=== PATIENT | female | born 1970 | race Caucasian/White ===

== ENCOUNTER 2020-07-30 16:10 | Outpatient (REF) | payer OTHER, MEDICAID, SELFPAY ==
--- NOTE | 2020-07-30 | US_ITS ---
EXAMINATION: US SOFT TISSUE OF THE NECK CLINICAL INFORMATION: Left parotid swelling. COMPARISON: None TECHNIQUE: Linear transducer grayscale and color Doppler examination of the left parotid gland. FINDINGS: The parotid gland has a relatively smooth contour. No definite ductal dilation. No shadowing calculus. There are 2 circumscribed hypoechoic oval abnormalities within the parotid. These likely represent lymph nodes but are nonspecific. US/US soft tiss head and/or neck IMPRESSION: No ductal dilation or calculus demonstrated. There may be some small nonspecific lymph nodes. The patient should be managed on a clinical basis.
== END 2020-07-30 16:11 | disposition home or self-care (01) ==
LOC: HO.US 16:10
PROVIDERS: PCP Internal Medicine; Visit Provider Internal Medicine
DX: K11.20 Sialoadenitis, unspecified (principal)
CPT/HCPCS: 76536

== ENCOUNTER 2022-02-24 15:36 | Outpatient (REF) | payer OTHER, MEDICAID, SELFPAY ==
--- NOTE | ~2022-02-24 | XR_ITS ---
EXAMINATION: XR CERVICAL SPINE CLINICAL INFORMATION: Cervicalgia COMPARISON: None TECHNIQUE: Cervical spine is imaged in 8 views. FINDINGS: The vertebral bodies are normal in height and there is no vertebral compression, spondylolisthesis, destructive process, or prevertebral soft tissue swelling. The odontoid appears intact. No focal disc narrowing. There is anterior vertebral spurring and lesser posterior vertebral body spurring C4-C5 through C6-C7. Oblique views show mild left foraminal spurring C5-C6 and on the right at C5-C6 and C6-C7. XR/XR cervical spine 4V IMPRESSION: -No vertebral compression, spondylolisthesis, destructive process.. -Vertebral spurring C4-C7 with variable foraminal spurring.
== END 2022-02-24 15:37 | disposition home or self-care (01) ==
LOC: HO.XRAY 15:36
PROVIDERS: Visit Provider Emergency Medicine
DX: M54.2 Cervicalgia (principal)
CPT/HCPCS: 72050

== ENCOUNTER 2022-06-09 10:21 | Outpatient (REF) | payer OTHER, MEDICAID, SELFPAY ==
--- NOTE | ~2022-06-09 | MM_ITS ---
EXAMINATION: MM SCREENING DIGITAL BREAST TOMOSYNTHESIS, BILATERAL CLINICAL INFORMATION: Screening. Asymptomatic. The lifetime risk of breast cancer based on the Tyrer-Cuzick Model is 8%. COMPARISON: Mammography: 10/22/2017, 06/19/2016, 04/08/2015; right breast ultrasound 10/22/2017. TECHNIQUE: Digital breast tomosynthesis is performed in both the craniocaudal and mediolateral oblique views along with computer-aided detection (CAD). Synthesized 2D images are generated from the tomosynthesis. FINDINGS: There are scattered areas of fibroglandular density (ACR BI-RADS breast composition Category b). There is a cyst anterior upper outer right breast slightly increased in size, 5 x 9 mm compared with prior measurements 4 x 6 mm. There is no significant mass or architectural abnormality or abnormal calcifications. The axilla are unremarkable. The skin contours are smooth. MM/MM tomosynthesis screening BI IMPRESSION: -No mammographic evidence of malignancy. ASSESSMENT: BI-RADS 2: Benign RECOMMENDATION: Routine annual mammography screening. This patient's information was entered into a reminder system with a target due date for their next mammogram.
== END 2022-06-09 10:22 | disposition home or self-care (01) ==
LOC: HO.MAMMO 10:21
PROVIDERS: PCP Internal Medicine; Visit Provider Advanced Practice Midwife
DX: Z12.31 Encounter for screening mammogram for malignant neoplasm of breast (principal)
CPT/HCPCS: 77063; 77067

== ENCOUNTER 2022-09-04 11:33 | Outpatient (REF) | payer OTHER, MEDICAID, SELFPAY ==
[2022-09-04 13:37] LABS: Syphilis Screen Nonreactive (Nonreactive)
[2022-09-04 14:11] LABS: CT PCR NOT DETECTED (Not Detect.); NG PCR NOT DETECTED (Not Detect.)
[2022-09-05 08:15] LABS: HBsAGNum1 0.32 S/CO (0.00-0.99); HIV AB/AG Nonreactive (Nonreactive); HIV Num 1 0.06 S/CO (0.00-0.99); Hepatitis B Surface Antigen Negative (Negative); ~HepC Num1 14.15 S/CO (0.00-0.79); ~Hepatitis C Antibody Reactive (Nonreactive)
[2022-09-05 08:56] LABS: BV Int Neg Control Negative (Negative); BV Int Pos Control Positive (Positive)
[2022-09-07 11:38] LABS: HPV mRNA E6/E7 rflx Not Detected (Not Detected)
== END 2022-09-04 11:34 | disposition home or self-care (01) ==
LOC: HO.LNP 11:33
PROVIDERS: Visit Provider Advanced Practice Midwife
DX: Z01.419 Encounter for gynecological examination (general) (routine) without abnormal findings (principal); Z11.4 Encounter for screening for human immunodeficiency virus [HIV]; Z11.3 Encounter for screening for infections with a predominantly sexual mode of transmission; B37.31 Acute candidiasis of vulva and vagina; E66.9 Obesity, unspecified; Z87.42 Personal history of other diseases of the female genital tract; Z97.5 Presence of (intrauterine) contraceptive device; Z98.51 Tubal ligation status; Z98.891 History of uterine scar from previous surgery
CPT/HCPCS: 86780; 86803; 87340; 87389; 87480; 87491; 87510; 87591; 87624; 87660; 88142

== ENCOUNTER 2023-03-21 11:52 | Emergency (ER) | payer OTHER, MEDICAID, SELFPAY ==
--- NOTE | 2023-03-21 12:04 | ED.ALLEREA ---
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 Admits symptoms started while she was driving. Reports took muscle relaxer today which is not new, as well as preparing salmon this morning which she has never had prior reaction to. 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 Reports scratchy/raspy throat. Denies SOB, CP, new exposures, fever MD complaint: allergic reaction Onset (ago): minute(s) Related Data Home Medications Medication Instructions Recorded Confirmed albuterol sulfate 2.5 mg/3 mL mg inhalation 06/05/22 09/04/22 (0.083 %) solution for nebulization albuterol sulfate 90 mcg/actuation 0 mcg inhalation 06/05/22 09/04/22 aerosol inhaler bupropion HCl 300 mg 24 hr tablet, 300 mg PO DAILY 06/05/22 09/04/22 extended release cyclobenzaprine 10 mg tablet 10 mg PO TID 06/05/22 09/04/22 diclofenac sodium 75 mg 75 mg PO BID 06/05/22 09/04/22 tablet,delayed release lamotrigine 100 mg tablet 100 mg PO DAILY 06/05/22 09/04/22 omeprazole 20 mg capsule,delayed 20 mg PO DAILY 06/05/22 09/04/22 release topiramate 50 mg tablet 50 mg PO BID 06/05/22 09/04/22 Previous Rx's Medication Instructions Recorded miconazole nitrate 2 % vaginal 1 appful vaginal BEDTIME 7 days 09/04/22 cream (Miconazole-7) #45 grams cetirizine 10 mg capsule (Zyrtec) 10 mg PO DAILY PRN allergy 03/21/23 symptoms #14 caps diphenhydramine HCl 25 mg capsule 25 mg PO TID PRN allergic reaction 03/21/23 (Benadryl) #14 caps epinephrine 0.3 mg/0.3 mL 0.3 mg (0.3 mL) IM Q4H PRN 03/21/23 injection, auto-injector (EpiPen) anaphylaxis #2 ea Allergies Allergy/AdvReac Type Severity Reaction Status Date / Time No Known Allergies [NKA] Allergy Verified 09/04/22 10:52 Review of Systems Review of Systems: Constitutional: No Fever, No Chills ENT/Mouth: No Ear Pain, No Nasal Congestion, No Sinus Pain, + Hoarseness, No sore throat, No Rhinorrhea, + Swallowing Difficulty Cardiovascular: No Chest Pain, No SOB Respiratory: No Cough, No Sputum, No Wheezing Gastrointestinal: No Nausea, No Vomiting, No Diarrhea, No Constipation, No Abdominal pain Musculoskeletal: No joint pain, No Myalgias, No Joint Swelling Skin: No Skin Lesions, + rash Neuro: No Weakness, No Numbness, No Paresthesias Yes all other systems are reviewed and are negative Constitutional: Constitutional: Reports as per [facility] Past Medical History Attestation statement: The following information was validated with the patient. Source: old records reviewed Medical History Asthma Surgical History Hx of section Hx of tubal ligation Family History Family History Father HTN (hypertension) Diabetes CAD (coronary artery disease) Brother Diabetes Social History Social History Household Members Other:: son Housing: House Alcohol intake: never Patient Tobacco Use Status: Current someday Tobacco user Tobacco use type: Cigarette Cigarettes Per Day: 3 Smoked in Last 30 Days: No Use of substances other than those prescribed or required for medical reasons: No Advance Directives: No Advance Directives Information Provided: No Current occupational status: employed 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 Sexual orientation: Straight/Heterosexual Gender identity: Female Physical Exam ED Vital Signs: Vital Signs - 24 hr 03/21/23 12:06 Temperature 97.1 F Pulse Rate 111 H Respiratory Rate 18 Blood Pressure 113/81 Pulse Oximetry 96 Oxygen Delivery Method Room Air BMI result Body Mass Index 33.3 Const General: cooperative, healthy appearing, no acute distress and awake Orientation/consciousness: patient oriented x3 Limitations: no limitations HENMT Head: Yes normal to inspection and Yes atraumatic Ears: hearing grossly normal bilaterally General nose exam: Normal external nose present Face and sinus: Yes normal facial exam Throat: Yes posterior oropharynx normal, Yes tonsils normal, Yes uvula midline, No peritonsillar mass, No uvula laterally displaced and No uvular edema Eyes General: appearance normal, both eyes and all related structures EOM: EOMs intact bilaterally Neck Neck: Yes normal visual inspection and Yes no meningeal signs Resp Effort & Inspection: normal respiratory effort, no grunting, not labored, no respiratory distress, no stridor, not tachypneic and no tripod positioning Auscultation: clear to auscultation bilaterally and no wheezes Cardio Rate: regular rate Heart sounds: S1 normal heart sound present and S2 normal heart sound present Skin Other: + diffuse erythematous rash to face, chest, and upper back. Mild bilateral hand and lip swelling noted. Talking in complete sentences, no respiratory distress, no drooling, handling secretions, no angioedema Wounds: no wounds Neuro General: patient oriented x3, tone normal and no meningeal signs Gait exam (Neuro): Normal gait present Extrem General: Yes normal to inspection Course Course Course Narrative: RME - 53 yo Slovak speaking female presents to the ER for evaluation of a possible allergic reaction that started 45 minutes ago. She states she developed a red, raised, itchy rash all over her body when she was driving. She reports her voice started to feel raspy. She took benadryl x2 which helped. No new foods, meds. HR 110s in triage. Airway patent and clear lungs but she reports her voice feels different and swallowing feels different. Plan: medicate and observe -1352--on re-evaluation patient reports mild symptomatic improvement. Reports mild nausea. Rash improving/resolved. No respiratory distress, talking in complete sentences. Results discussed with patient including worrisome signs and symptoms and strict return precautions, and when to return to the emergency department. They verbalized understanding and feel safe for discharge at this time. Medications Administered Discontinued Medications Generic Name Dose Route Start Last Admin Trade Name Freq PRN Reason Stop Dose Admin Famotidine 20 mg 03/21/23 12:12 03/21/23 12:49 Famotidine 20 Mg Tablet PO 03/21/23 12:13 20 mg ONCE ONE Administration Loratadine 10 mg 03/21/23 12:12 03/21/23 12:49 Loratadine 10 Mg Tablet PO 03/21/23 12:13 10 mg ONCE ONE Administration Methylprednisolone Sodium Succinate 60 mg 03/21/23 12:10 03/21/23 12:49 Methylprednisolone Sod Succ 125 Mg/2 Ml Vial IM 03/21/23 12:11 60 mg ONCE ONE Administration Ondansetron HCl 4 mg 03/21/23 13:17 03/21/23 13:29 Ondansetron Odt 4 Mg Tab.Rapdis TRANSLINGU 03/21/23 13:18 4 mg ONCE ONE Administration Medical Decision Making Medical Decision Making MDM Narrative: 53-year-old female with a past medical history tubal ligation, , presenting to the ED complaining of suspected 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 On exam tachycardic, NAD, nontoxic appearing, no respiratory distress/airway compromise, talking in complete sentences, diffuse erythematous rash noted as above with mild lip and bilateral hand swelling. Handling secretions, no stridor. Concern for allergic reaction. No evidence of anaphylaxis/angioedema. Plan: IM Solu-Medrol, p.o. Pepcid/Claritin, observe and re-evaluate Please refer to course for remaining clinical decision making, interpretation of labs/imaging results, and discussions with consultants and/or family members. Differential Diagnosis Differential Diagnoses: The differential diagnosis associated with the presentation includes As above Admission/Observation Consideration of admission/observation: Escalation of care including admission/observation considered Lab Data [facility] Lab Attestation statement: I reviewed the patient's lab results. Radiology Impression Discussion of test interpretation with radiology: I have reviewed the radiologist's reading. External Record Review External record reviewed: Inpatient record, Office record, Outpatient record, Prior outpatient labs, Prior outpatient radiology, Primary care record and Outside ED record Tests considered The following testing was considered but not selected: As above Critical Care Time Critical Care Time Critical Care Time: Yes Total Critical Care Time: 40 Attestation: I have personally provided critical care time exclusive of time spent on separately billable procedures. Time includes review of lab data, radiology results, discussion with consultants, and monitoring for potential decompensation. Intervention performed as documented. Discharge Plan Discharge Clinical Impression: Allergic reaction Patient Disposition: Home, Self-Care Instructions: General Allergic Reaction (ED), Allergy Testing (ED) Additional Instructions: You had an allergic reaction to an unknown substance today Please follow-up with an compressed yeast supervisor for further allergy testing If symptoms recur, you develop difficulty breathing, throat closing sensation, or chest discomfort return to the ED immediately Please take Benadryl as needed for allergy symptoms, you may also take Zyrtec or Claritin and Pepcid Will send you home with an EpiPen if you feel like youre unable to breathe, please administer and come to the ED immediately Tuviste erlinda reacci?n al?rgica a erlinda sustancia desconocida hoy. Marco Antonio un seguimiento con un alerg?logo para realizar m?s pruebas de alergia. Si los s?ntomas reaparecen, tiene dificultad para respirar, sensaci?n de que se le loretta la garganta o molestias en el pecho, regrese inmediatamente al servicio de urgencias. [place] Benadryl seg?n sea necesario para los s?ntomas de alergia, tambi?n puede sulema Zyrtec o Claritin y Pepcid Lo enviar? a casa con un EpiPen si siente que no puede respirar, administre y acuda al servicio de urgencias de inmediato. Prescriptions: New diphenhydramine HCl [Benadryl] 25 mg capsule 25 mg PO TID PRN (Reason: allergic reaction) Qty: 14 0RF Zyrtec 10 mg capsule 10 mg PO DAILY PRN (Reason: allergy symptoms) Qty: 14 0RF epinephrine [EpiPen] 0.3 mg/0.3 mL auto-injector 0.3 mg IM Q4H PRN (Reason: anaphylaxis) Qty: 2 0RF No Action topiramate 50 mg tablet 50 mg PO BID bupropion HCl 300 mg tablet extended release 24 hr 300 mg PO DAILY lamotrigine 100 mg tablet 100 mg PO DAILY diclofenac sodium 75 mg tablet,delayed release (DR/EC) 75 mg PO BID cyclobenzaprine 10 mg tablet 10 mg PO TID albuterol sulfate 90 mcg/actuation HFA aerosol inhaler 0 mcg inhalation albuterol sulfate 2.5 mg /3 mL (0.083 %) solution for nebulization inhalation omeprazole 20 mg capsule,delayed release(DR/EC) 20 mg PO DAILY miconazole nitrate [Miconazole-7] 2 % cream 1 appful vaginal BEDTIME 7 Days Qty: 45 3RF Referrals: Roberto Quinones MD [Physician] - Ana Laura Bo MD [Primary Care Provider] - Mark Turcios DO [Physician] - Constanza Rocha MD [Physician] - Print Language: Slovak
[2023-03-21 12:06] VITALS: BP 113/81; PULSE 111; RESP 18; TEMP 36.2; O2SAT 96; BMI 33.3
[2023-03-21] MEDS: Famotidine 20 MG TABLET PO (12:49)
[2023-03-21] MEDS: Loratadine 10 MG TABLET PO (12:49)
[2023-03-21] MEDS: methylPREDNISolone Sod Succ 125 MG/2 ML VIAL 60 MG IM (12:49)
--- NOTE | 2023-03-21 13:00 | PC.NURSE ---
Patient presents with allergic symptoms. Patient is alert and oriented with no s/s of distress noted and able to maintain airway.
[2023-03-21] MEDS: Ondansetron ODT 4 MG TAB.RAPDIS TRANSLINGU (13:29)
[2023-03-21 14:28] VITALS: BP 105/62; PULSE 89; RESP 18; O2SAT 95
== END 2023-03-21 14:43 | disposition home or self-care (01) ==
PROVIDERS: Emergency Provider Emergency Medicine; PCP Internal Medicine
DX: R21 Rash and other nonspecific skin eruption (principal); X58.XXXA Exposure to other specified factors, initial encounter; F17.210 Nicotine dependence, cigarettes, uncomplicated
CPT/HCPCS: 96372; 99284; J2930

== ENCOUNTER → 2023-06-19 15:30 | Outpatient (BNV) | payer OTHER, MEDICAID, SELFPAY | PROVIDERS: PCP Internal Medicine; Visit Provider Radiology Diagnostic Radiology | DX: Z12.31 Encounter for screening mammogram for malignant neoplasm of breast (principal) | CPT/HCPCS: 77063; 77067 ==

== ENCOUNTER 2023-06-19 15:33 | Outpatient (REF) | payer OTHER, MEDICAID, SELFPAY ==
--- NOTE | ~2023-06-19 | MM_ITS ---
EXAMINATION: MM SCREENING DIGITAL BREAST TOMOSYNTHESIS, BILATERAL CLINICAL INFORMATION: Screening. Asymptomatic. COMPARISON: Mammography: This study is compared with prior exams dating back to 2016. TECHNIQUE: Digital breast tomosynthesis is performed in both the craniocaudal and mediolateral oblique views along with computer-aided detection (CAD). Synthesized 2D images are generated from the tomosynthesis. FINDINGS: The breasts are almost entirely fatty (ACR BI-RADS breast composition Category a). There are no significant masses, abnormal calcifications, or other abnormalities. MM/MM tomosynthesis screening BI IMPRESSION: No mammographic evidence of malignancy. ASSESSMENT: BI-RADS BI-RADS 1 - Negative RECOMMENDATION: Routine annual mammography screening. 1 year F/U This examination should not preclude the clinical evaluation of a suspicious palpable abnormality. This patient's information was entered into a reminder system with a target due date for their next mammogram.
== END 2023-06-19 15:34 | disposition home or self-care (01) ==
LOC: HO.MAMMO 15:33
PROVIDERS: PCP Internal Medicine; Visit Provider Internal Medicine
DX: Z12.31 Encounter for screening mammogram for malignant neoplasm of breast (principal)
CPT/HCPCS: 77063; 77067

== ENCOUNTER → 2023-07-31 12:06 | Outpatient (BNVA) | payer OTHER, SELFPAY | PROVIDERS: PCP Internal Medicine; Visit Provider Physician Assistant Medical | DX: S46.811A Strain of other muscles, fascia and tendons at shoulder and upper arm level, right arm, initial encounter (principal); S50.811A Abrasion of right forearm, initial encounter; Y04.2XXA Assault by strike against or bumped into by another person, initial encounter | CPT/HCPCS: 99202 ==

== ENCOUNTER → 2023-08-02 11:00 | Outpatient (BNVA) | payer OTHER, SELFPAY | PROVIDERS: PCP Internal Medicine; Visit Provider Physician Assistant Medical | DX: S46.811A Strain of other muscles, fascia and tendons at shoulder and upper arm level, right arm, initial encounter (principal); Y04.2XXA Assault by strike against or bumped into by another person, initial encounter | CPT/HCPCS: 99213 ==

== ENCOUNTER → 2023-08-13 11:23 | Outpatient (BNVA) | payer OTHER, SELFPAY | PROVIDERS: PCP Internal Medicine; Visit Provider Physician Assistant Medical | DX: S46.811D Strain of other muscles, fascia and tendons at shoulder and upper arm level, right arm, subsequent encounter (principal); X58.XXXD Exposure to other specified factors, subsequent encounter | CPT/HCPCS: 99213 ==

== ENCOUNTER → 2023-08-27 09:50 | Outpatient (BNVA) | payer OTHER, SELFPAY | PROVIDERS: PCP Internal Medicine; Visit Provider Physician Assistant Medical | DX: S46.811D Strain of other muscles, fascia and tendons at shoulder and upper arm level, right arm, subsequent encounter (principal); Y04.2XXD Assault by strike against or bumped into by another person, subsequent encounter | CPT/HCPCS: 99213 ==

== ENCOUNTER 2023-09-13 10:00 | Outpatient (RCR) | payer OTHER, MEDICAID, SELFPAY ==
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
--- NOTE | 2023-11-07 08:51 | MHC.PT.DC ---
[facility] [place] [facility] [place] Office [place] Office [address] Suhail Hutton [address] [phone] F: [phone] F: [phone] F: [phone] F: [phone] Physical Therapy Discharge Report Diagnosis: R upper trapezius strain. Date of Surgery: DOI 07/30 Date of Evaluation: 08/07/23 Date of Discharge: 11/07/23 Treatments to Date: 10 Cancellations to Date: No Shows to Date: Discharge Status: Improved Function Independent with HEP Discharge Summary: Pt did not continue with therapy after her re-assessment. Electronically signed by: Martell Dow PT. Please sign and return to therapist. Thank you for your referral.
== END 2023-11-07 08:53 | disposition home or self-care (01) ==
LOC: HO.PT 10:00
PROVIDERS: PCP Internal Medicine; Visit Provider Physician Assistant Medical
DX: S46.811D Strain of other muscles, fascia and tendons at shoulder and upper arm level, right arm, subsequent encounter (principal)
CPT/HCPCS: 97110; 97140; 97161; 97164

== ENCOUNTER 2023-09-17 10:51 | Outpatient (REF) | payer OTHER, SELFPAY ==
--- NOTE | ~2023-09-17 | XR_ITS ---
EXAMINATION: XR SHOULDER, RIGHT CLINICAL INFORMATION: Shoulder pain. COMPARISON: Right shoulder radiograph 10/21/2010 TECHNIQUE: Three views of the right shoulder. FINDINGS: The bones and soft tissues are unremarkable aside from some minimal sclerotic change at the inferior glenoid, slightly increased when compared to 2011. No fracture. Glenohumeral and acromioclavicular alignment is anatomic with normal joint space. No abnormal soft tissue calcifications. XR/XR shoulder RT min 2V IMPRESSION: Minimal degenerative changes at the inferior glenoid.
== END 2023-09-17 10:52 | disposition home or self-care (01) ==
LOC: HO.HOSX 10:51
PROVIDERS: PCP Internal Medicine; Visit Provider Physician Assistant Medical
DX: S46.811D Strain of other muscles, fascia and tendons at shoulder and upper arm level, right arm, subsequent encounter (principal); Y04.2XXD Assault by strike against or bumped into by another person, subsequent encounter
CPT/HCPCS: 73030; 99202; 99213

== ENCOUNTER 2023-09-17 12:58 | Outpatient (AMB) | payer OTHER, SELFPAY ==
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
[2023-09-17 13:10] VITALS: BMI 33.3
== END 2023-09-17 14:34 | disposition home or self-care (01) ==
PROVIDERS: PCP Internal Medicine; Visit Provider Orthopaedic Surgery
DX: S40.011A Contusion of right shoulder, initial encounter (principal); Z04.2 Encounter for examination and observation following work accident
CPT/HCPCS: 99203

== ENCOUNTER → 2023-10-11 11:05 | Outpatient (BNVA) | payer OTHER, SELFPAY | PROVIDERS: PCP Internal Medicine; Visit Provider Physician Assistant Medical | DX: S46.811D Strain of other muscles, fascia and tendons at shoulder and upper arm level, right arm, subsequent encounter (principal); Y04.2XXD Assault by strike against or bumped into by another person, subsequent encounter | CPT/HCPCS: 99213 ==

== ENCOUNTER 2023-11-14 10:50 | Outpatient (REF) | payer OTHER, MEDICAID, SELFPAY ==
[2023-11-15 03:40] LABS: CT PCR NOT DETECTED (Not Detect.); NG PCR NOT DETECTED (Not Detect.)
[2023-11-15 11:12] LABS: BV Int Neg Control Negative (Negative); BV Int Pos Control Positive (Positive)
== END 2023-11-14 10:51 | disposition home or self-care (01) ==
LOC: HO.LNP 10:50
PROVIDERS: PCP Internal Medicine; Visit Provider Advanced Practice Midwife
DX: Z20.2 Contact with and (suspected) exposure to infections with a predominantly sexual mode of transmission (principal); B37.31 Acute candidiasis of vulva and vagina; Z92.89 Personal history of other medical treatment; Z87.42 Personal history of other diseases of the female genital tract; Z97.5 Presence of (intrauterine) contraceptive device
CPT/HCPCS: 0353U; 87480; 87510; 87660

== ENCOUNTER 2023-11-14 10:50 | Outpatient (AMB) | payer OTHER, MEDICAID, SELFPAY ==
[2023-11-14 10:52] VITALS: BMI 34.6
--- NOTE | 2023-11-14 10:52 | MHC.OFFVIS ---
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 Intake Note: Has been having some itching Set Up Mechanic Heading Machines Required: Yes Set Up Mechanic Heading Machines Language: Amharic Information Interpreted: non-clinical & clinical Manager Investment Banking: Manager Investment Banking Present (Aidyn) Allergies No Known Allergies [NKA] Allergy (Verified 11/14/23 10:54) Medication List - Last Reconciled 11/14/23 by Lexi Pitts CNM albuterol sulfate 90 mcg/actuation 0 mcg inhalation albuterol sulfate mg inhalation bupropion HCl 300 mg PO DAILY cetirizine (Zyrtec) 10 mg PO DAILY PRN cyclobenzaprine 10 mg PO TID cyclobenzaprine 5 mg PO BEDTIME PRN diclofenac sodium 75 mg PO BID diphenhydramine HCl (Benadryl) 25 mg PO TID PRN epinephrine (EpiPen) 0.3 mg (0.3 mL) IM Q4H PRN gabapentin 100 mg PO BEDTIME lamotrigine 100 mg PO DAILY levonorgestrel (Mirena) intrauterine lidocaine 5% 1 patch topical DAILY naproxen 500 mg PO BID PRN naproxen 500 mg PO BID PRN omeprazole 20 mg PO DAILY topiramate 50 mg PO BID trazodone 50 mg PO BEDTIME zolpidem 5 mg PO BEDTIME PRN Is last menstrual period known: No (no menses mirena) Post menopausal: No 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 She is also have seeing itching under her pannus. She could not remember when she last saw her primary care provider because it has been a while she thinks her last fasting blood work was over year ago she told me everything was normal but on further questioning she says that she was told that she was prediabetic and she needed to lose weight she has not been able to because when she is stressed she eats chips and junk food that she self described as such. She has not sure when her next appointment is she says she did just have her mammogram in October and it was fine. On questioning after the exam and towards the end of the visit the patient tells me she has seen somebody from Gastroenterology because she just recently had a colonoscopy and they found several polyps and so she needs her next 1 in her shorter number of years than usual. I inquired as to whether not there was any discussion about her rectocele and she said there was not on questioning she says she has a bowel movement about every other day and sometime she strains. She was able to reproduce a good Kegel during the visit and I recommend to her that she add more vegetables and water and fiber into her diet to try to prevent straining with with bowel movements but that if she ever does have a sensation that something is coming out of her vagina she would probably need to see gastroenterology, as it is obvious that she has a longstanding rectocele. [facility] Medical History (Updated 11/14/23 @ 12:27 by Lexi Pitts CNM) Asthma Surgical History (Updated 11/14/23 @ 10:56 by ADRIANA Maurer) Hx of cholecystectomy Hx of tubal ligation Hx of section Family History Father HTN (hypertension) Diabetes CAD (coronary artery disease) Brother Diabetes Social History (Updated 11/14/23 @ 10:57 by ADRIANA Maurer) Household Members Other:: son Housing: House Alcohol intake: never Patient Tobacco Use Status: Former Tobacco user Tobacco use type: Cigarette Cigarettes Per Day: 3 Current occupational status: employed Current occupation: [employer] Sexual orientation: Straight/Heterosexual Gender identity: Female Female Reproductive History Menstrual Age of Menarche: 12 Duration of menses: other control method: progestin IUCD Total pregnancies: 4 Full term: 3 Number of Living Children: 3 Ab spontaneous: 1 Date of last pap smear: 09/04/22 (negative) History of abnormal pap smear: Yes (2010 LORENE 1) Date of Mammogram: 06/19/23 Physical Exam Vital Signs: BMI result Body Mass Index 34.6 Const Other: Patient complaining of some itching under pannus some pallor skin there consistent with mild yeast no severe excoriation noted. General: healthy appearing, comfortable, no acute distress, well developed and alert Nutritional Appearance: average body habitus Orientation/consciousness: patient oriented x3 Limitations: no limitations HEENT Head: Yes normocephalic Neck Neck: Yes normal visual inspection Chest Chest palpation & inspection: normal inspection of the chest Breast/axilla inspection: normal inspection of the breasts and normal inspection of the axillae Breast/axilla palpation: normal palpation of the breasts and normal palpation of the axillae Resp Effort & Inspection: normal respiratory effort GI Inspection: Yes normal to inspection, No Abdominal wall edema and No distended Palpation (GI): Soft to palpation and nontender Other: Labia majora slightly deep pink consistent with mild yeast very obvious rectocele noted patient not complaining of any pain but uses the bathroom for a bowel movement about every other day does strain occasionally. Cervix is extremely difficult to visualize and in fact could not be visualized today even using a very long Graves speculum and with knowledge of where the cervix was before the exam the cervix is again situated right behind the symphysis pubis it is small closed mobile nontender and a Mirena string was palpable in the os uterus not fully palpable patient did have a good muscle retraction with a Kegel even of the rectocele.. General: Yes bladder normal to palpation External Female Exam: normal external appearance and normal appearance of the urethra Speculum Exam - Vagina: normal appearance of the vagina, normal palpation and normal vaginal discharge Speculum Exam - Cervix: normal palpation and nontender Bimanual exam- vagina & uterus: normal bimanual exam, normal palpation, uterine size normal, bladder normal to palpation, consistency normal, normal palpation, uterine mobility normal, uterine shape normal, No Cervical tenderness present, non-tender and no cervical motion tenderness Bimanual Exam- Adnexa, other: normal adnexae, no masses, normal, No adnexal tenderness and rectocele Neuro General: patient oriented x3 Results Reviewed Results Reviewed: Copies to: MR #: [id number] Status: DEP REF Collected: 09/04/22 Location: [facility] Received: 09/04/22 Interpretation Satisfactory for evaluation. Negative for intraepithelial lesion or malignancy. Fungal organisms consistent with Gayla species. HPV mRNA E6/E7: NOT DETECTED This assay detects E6/E7 viral messenger RNA (mRNA) from 14 high-risk HPV types (16, 18, 31, 33, 35, 39, 45, 51, 52, 56, 58, 59, 66, 68) HPV testing performed by [facility], [place], [place]. See reference laboratory portion of the EMR for entire report. Clinical Information LMP: No menses Previous PAP test: 03/12/18, WNL Material Received ThinPrep-Cervical Electronically Signed By: Aline Vital 09/29/22 [id number] The Pap Test is a screening procedure with the inherent possibility of both false negative and false positive results. Results should be interpreted in the context of historic and current clinical findings. Reliability of the Pap Test is enhanced by performing the test on a regular repetitive basis. Patient: Vivian Francisco Age/Sex: 52/F MR#: [id number] Page 1 of 1 Assessment & Plan Assessment & Plan (1) Screen for sexually transmitted diseases: Code(s): Z11.3 - Encounter for screening for infections with a predominantly sexual mode of transmission (2) Obesity (BMI 35.0-39.9 without comorbidity): Code(s): E66.9 - Obesity, unspecified (3) Yeast infection of the vagina: Code(s): B37.31 - Acute candidiasis of vulva and vagina (4) Hx of abnormal cervical Pap smear: Comment: Extremely difficult to visualize her cervix which is right behind her symphysis pubis. Large long Graves speculum was necessary yeast is present. Cervix had to be digitally located 1st she with vaginal exam so lubricant was used for the 1st time and may obscure the Pap.-- 09/04/22 pap is nge w neg hpv, ; Unable to visualize her cervix to 724 cervix was palpable behind symphysis pubis with Mirena string palpable as well Code(s): Z87.42 - Personal history of other diseases of the female genital tract (5) Presence of 52 mg levonorgestrel-releasing intrauterine device (IUD): Comment: Placed in 2018 for DUB Code(s): Z97.5 - Presence of (intrauterine) contraceptive device Plan: Unable to visualize her cervix 11/14/2023. If it turns out she is in menopause and wants to remove the Mirena which was inserted for DUB after negative endometrial biopsy in 2018. I recommend that she see Dr. Fernandez for removal of the IUD as I would not be able to do it.-mob. 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 She is also have seeing itching under her pannus. She could not remember when she last saw her primary care provider because it has been a while she thinks her last fasting blood work was over year ago she told me everything was normal but on further questioning she says that she was told that she was prediabetic and she needed to lose weight she has not been able to because when she is stressed she eats chips and junk food that she self described as such. She has not sure when her next appointment is she says she did just have her mammogram in October and it was fine. On questioning after the exam and towards the end of the visit the patient tells me she has seen somebody from Gastroenterology because she just recently had a colonoscopy and they found several polyps and so she needs her next 1 in her shorter number of years than usual. I inquired as to whether not there was any discussion about her rectocele and she said there was not on questioning she says she has a bowel movement about every other day and sometime she strains. She was able to reproduce a good Kegel during the visit and I recommend to her that she add more vegetables and water and fiber into her diet to try to prevent straining with with bowel movements but that if she ever does have a sensation that something is coming out of her vagina she would probably need to see gastroenterology, as it is obvious that she has a longstanding rectocele. I am ordering her miconazole cream for her vulva and miconazole powder for her pannus. She tells me that she has been checking her sugars herself and sometimes they are 85 when she wakes up in the morning and about 105 at other times and I discussed that these are reassuring levels but did recommend follow-up with her primary care provider on this issue Orders: Orders Bacterial Vaginosis Panel Today Z11.3 - Encounter for screening for infections with a predominantly sexual mode of transmission CT NG by PCR Today Z11.3 - Encounter for screening for infections with a predominantly sexual mode of transmission Follicle Stimulating Hormone Today B37.31 - Acute candidiasis of vulva and vagina, E66.9 - Obesity, unspecified, N81.6 - Rectocele, N95.1 - Menopausal and female climacteric states, Z11.3 - Encounter for screening for infections with a predominantly sexual mode of transmission, Z87.42 - Personal history of other diseases of the female genital tract, Z92.89 - Personal history of other medical treatment, Z97.5 - Presence of (intrauterine) contraceptive device Medications: New miconazole nitrate 2% (Miconazole-7) 1 appful vaginal BEDTIME 7 days 45 grams 2RF miconazole nitrate 2% 1 appl topical BID 85 grams 3RF Coding Level of Care Code Est Pt Prev Care 40-64y(06633) Diagnoses Screen for sexually transmitted diseases Z11.3 Obesity (BMI 35.0-39.9 without comorbidity) E66.9 Yeast infection of the vagina B37.31 Hx of abnormal cervical Pap smear Z87.42 Presence of 52 mg levonorgestrel-releasing intrauterine device (IUD) Z97.5 History of endometrial biopsy Z92.89 Rectocele N81.6
== END 2023-11-14 14:45 | disposition home or self-care (01) ==
LOC: HO.HWSM 10:50
PROVIDERS: PCP Internal Medicine; Visit Provider Advanced Practice Midwife
DX: Z01.419 Encounter for gynecological examination (general) (routine) without abnormal findings (principal); B37.31 Acute candidiasis of vulva and vagina; E66.9 Obesity, unspecified; Z68.34 Body mass index [BMI] 34.0-34.9, adult; Z87.42 Personal history of other diseases of the female genital tract; Z97.5 Presence of (intrauterine) contraceptive device; Z92.89 Personal history of other medical treatment; N81.6 Rectocele
CPT/HCPCS: 99396

== ENCOUNTER 2023-12-27 08:08 | Outpatient (REF) | payer OTHER, MEDICAID, SELFPAY ==
[2023-12-27 08:33] LABS: MANUAL DIFF FLAG NO
[2023-12-27 09:17] LABS: Basophils Percent Auto 0.6 % (0-2); Eosinophils Absolute Auto 0.1 X10*3/uL (0.0-0.4); Eosinophils Percent Auto 1.5 % (0-4); Hematocrit 42.4 % (37.0-47.0); Hemoglobin 14.6 g/dl (12.0-16.0); Imm Gran Abs Auto 0.03 X10*3/uL (0.00-0.03); Imm Gran Pct Auto 0.4 % (0.0-0.4); Lymphocytes Absolute Auto 2.6 X10*3/uL (1.2-4.9); Lymphocytes Percent Auto 37.5 % (20-40); Mean Corpuscular HGB Conc 34.4 g/dl (31.0-35.0); Mean Corpuscular Hemoglobin 30.5 pg (27.0-33.0); Mean Corpuscular Volume 88.7 fL (80.0-98.0); Mean Platelet Volume 8.8 fL (9.4-12.3); Monocytes Absolute Auto 0.5 X10*3/uL (0.1-1.2); Neutrophils Absolute Auto 3.6 x10*3/uL (2.0-8.3); Platelet Count 240 X10*3/uL (160-400); Red Blood Count 4.78 X10*6/uL (4.20-5.50); Red Cell Distribution Width 12.4 % (11.0-16.0); White Blood Count 6.8 X10*3/uL (4.8-10.8)
[2023-12-27 09:26] LABS: Estimated Average Glucose 120 mg/dL; Hemoglobin A1c % 5.8 % (<6.0)
[2023-12-27 10:12] LABS: Alanine Aminotransferase 27 U/L (0-31); Alkaline Phosphatase 69 U/L (39-117); Anion Gap 15 (12-20); Aspartate Amino Transferase 18 U/L (5-31); Bilirubin Direct 0.2 mg/dL (0.0-0.5); Bilirubin Total 0.4 mg/dL (0.0-1.0); Blood Urea Nitrogen 12 mg/dL (9-16); Carbon Dioxide 24 mmol/L (22-29); Chloride 105 mmol/L (96-108); Cholesterol 200 mg/dL (<200); Estimated Glomerular Filt Rate > 60; Glucose Random 120 mg/dL (60-115); HDL Cholesterol 43 mg/dL (>40); LDL Cholesterol Calculated 143 mg/dL (<100); Potassium 3.9 mmol/L (3.3-5.1); Sodium 140 mmol/L (135-145); Total Protein 7.2 g/dL (6.5-8.0); Triglycerides 71 mg/dL (<150)
[2023-12-27 10:16] LABS: TSH reflex Free T4 2.71 uIU/mL (0.32-4.0)
[2023-12-28 11:33] LABS: Follicle Stimulating Hormone 52.2 mIU/mL
== END 2023-12-27 08:09 | disposition home or self-care (01) ==
LOC: HO.LAB 08:08
PROVIDERS: Absent Provider Internal Medicine; PCP Internal Medicine; Visit Provider Advanced Practice Midwife
DX: Z11.3 Encounter for screening for infections with a predominantly sexual mode of transmission (principal); B37.31 Acute candidiasis of vulva and vagina; E66.9 Obesity, unspecified; N81.6 Rectocele; N95.1 Menopausal and female climacteric states; E78.2 Mixed hyperlipidemia; Z97.5 Presence of (intrauterine) contraceptive device; Z92.89 Personal history of other medical treatment; Z87.42 Personal history of other diseases of the female genital tract
CPT/HCPCS: 36415; 80048; 80061; 80076; 83001; 83036; 84443; 85025

== ENCOUNTER 2024-01-15 15:23 | Outpatient (AMB) | payer OTHER, MEDICAID, SELFPAY ==
--- NOTE | 2024-01-15 15:37 | A.OFFVIS_ITS ---
Intake Vital Signs 01/15/24 15:44 Height 5 ft 5 in Weight 207 lb BMI 34.4 Intake Visit Reasons: IUD removal Lead Operator Required: Yes Lead Operator Language: Electronic Data Processing Auditor Name: alyssa [id number] Information Interpreted: non-clinical & clinical E Learning Specialist: E Learning Specialist Present (Aidyn) Allergies No Known Allergies [NKA] Allergy (Verified 01/15/24 15:45) Is last menstrual period known: No HPI HPI Comments History of Present Illness Details Presenting requesting Mirena IUD removal since the patient has been amenorrheic over the last 3 years and is status post sterilization [facility] Medical History Asthma Surgical History Hx of cholecystectomy Hx of tubal ligation Hx of section Family History Father HTN (hypertension) Diabetes CAD (coronary artery disease) Brother Diabetes Social History Household Members Other:: son Housing: House Alcohol intake: never Patient Tobacco Use Status: Former Tobacco user Tobacco use type: Cigarette Cigarettes Per Day: 3 Current occupational status: employed Current occupation: [employer] Sexual orientation: Straight/Heterosexual Gender identity: Female Female Reproductive History Menstrual Age of Menarche: 12 control method: progestin IUCD Total pregnancies: 3 Full term: 3 Number of Living Children: 3 Review of Systems Const All systems reviewed & are unremarkable except as noted in HPI and below Physical Exam Vital Signs: BMI result Body Mass Index 34.4 General: Yes no CVA tenderness External Female Exam: normal external appearance and normal appearance of the urethra Speculum Exam - Vagina: normal appearance of the vagina, normal palpation, no lesions and no masses Speculum Exam - Cervix: normal appearance of the cervix, normal palpation, no lesions, no masses, nontender and Other cervical findings present (IUD string in place) Bimanual exam- vagina & uterus: normal bimanual exam, normal palpation, uterine size normal, normal palpation, uterine shape normal, No Cervical tenderness present and non-tender Bimanual Exam- Adnexa, other: normal adnexae Back/Spine/Pelvis Back: no CVA tenderness Office Procedures IUD Insert/Removal Details Details: Counseling/Consent: After discussing with the patient the risks of the procedure including bleeding, infection, scar tissue formation, , possible i njury to blood vessels or nerves, chronic arm pain, blood transfusion, and irregular unpredictable bleeding Alternative options were discussed with the patient including but not limited: Do nothing. The patient signed the consent and agreed with the plan; all questions answered. Urine test was done in the office and was negative Preop dx: Requesting IUD removal Op: IUD removal Post op dx: same EBL= 10 cc Procedure: The patient was put in the dorsal lithotomy position a speculum was inserted in the vagina the IUD thread identified. Using a Herlinda clamp the thread was grasped and the IUD pulled out with no complications. The patient tolerated the procedure well and was advised to call in case of vaginal bleeding preop Discharge instructions: Instructions were given to the pt to call if temp>100.4, abdominal pain heavy vaginal bleeding, n/v occur. The patient verbalized understanding and all questions answered. This note was generated with a voice recognition program. Some errors may have been overlooked during the review of this note. Sometimes these errors may affect the content or meaning of a given sentence. 85981-PBR Removal Procedure code (CPT) selection complete Assessment & Plan Assessment & Plan (1) Encounter for IUD removal: Code(s): Z30.432 - Encounter for removal of intrauterine contraceptive device Plan: IUD removed, see procedure note. Instructions given to patient to call if bleeding occurs will proceed with endometrial sampling to rule out endometrial pathology and treat accordingly. All questions answered, the patient verbalized understanding Coding Level of Care Code Procedure Only Diagnoses Encounter for IUD removal Z30.432 CPT Codes Details - CPT: 20302-WTL Removal ([id number])
[2024-01-15 15:44] VITALS: BMI 34.4
== END 2024-01-15 16:07 | disposition home or self-care (01) ==
PROVIDERS: PCP Internal Medicine; Visit Provider Obstetrics & Gynecology
DX: Z30.432 Encounter for removal of intrauterine contraceptive device (principal); Z32.02 Encounter for pregnancy test, result negative
CPT/HCPCS: 58301

== ENCOUNTER → 2024-01-15 15:23 | Outpatient (BNVA) | payer OTHER, MEDICAID, SELFPAY | PROVIDERS: PCP Internal Medicine; Visit Provider Obstetrics & Gynecology | DX: Z30.432 Encounter for removal of intrauterine contraceptive device (principal) | CPT/HCPCS: 58301; 81025 ==

== ENCOUNTER 2024-02-11 13:10 | Outpatient (REF) | payer OTHER, MEDICAID, SELFPAY ==
[2024-02-13 23:59] LABS: C. trachomatis RNA TMA NOT DETECTED (NOT DETECTED); N. gonorrhoeae RNA TMA NOT DETECTED (NOT DETECTED)
== END 2024-02-11 13:11 | disposition home or self-care (01) ==
LOC: HO.HHCLNP 13:10
PROVIDERS: Visit Provider Internal Medicine
DX: R39.9 Unspecified symptoms and signs involving the genitourinary system (principal); Z20.2 Contact with and (suspected) exposure to infections with a predominantly sexual mode of transmission
CPT/HCPCS: 36415; 81513; 87491; 87591

== ENCOUNTER 2024-07-18 15:18 | Outpatient (REF) | payer OTHER, MEDICAID, SELFPAY ==
--- NOTE | ~2024-07-18 | MM_ITS ---
EXAMINATION: MM SCREENING DIGITAL BREAST TOMOSYNTHESIS, BILATERAL CLINICAL INFORMATION: Screening. Asymptomatic. COMPARISON: Mammography: Comparison is made with available priors TECHNIQUE: Digital breast mammography with tomosynthesis is performed in both the craniocaudal and mediolateral oblique views along with computer-aided detection (CAD). FINDINGS: There are scattered areas of fibroglandular density (ACR BI-RADS breast composition Category b). There are no significant masses, abnormal calcifications, or other abnormalities. MM/MM tomosynthesis screening BI IMPRESSION: No mammographic evidence of malignancy. ASSESSMENT: BI-RADS BI-RADS 1 - Negative RECOMMENDATION: Routine annual mammography screening. 1 year F/U This examination should not preclude the clinical evaluation of a suspicious palpable abnormality. This patient's information was entered into a reminder system with a target due date for their next mammogram. Electronically signed by: Erma Mendieta DO 07/31/2024 09:42 PM EDT
== END 2024-07-18 15:19 | disposition home or self-care (01) ==
LOC: HO.MAMMO 15:18
PROVIDERS: PCP Internal Medicine; Visit Provider Internal Medicine
DX: Z12.31 Encounter for screening mammogram for malignant neoplasm of breast (principal)
CPT/HCPCS: 77063; 77067

== ENCOUNTER → 2024-07-18 15:30 | Outpatient (BNV) | payer OTHER, MEDICAID, SELFPAY | PROVIDERS: PCP Internal Medicine; Visit Provider Internal Medicine | DX: Z12.31 Encounter for screening mammogram for malignant neoplasm of breast (principal) | CPT/HCPCS: 77063; 77067 ==

== ENCOUNTER 2024-08-15 11:44 | Outpatient (REF) | payer MEDICAID, SELFPAY ==
--- NOTE | ~2024-08-15 | XR_ITS ---
EXAMINATION: XR HIP, RIGHT CLINICAL INFORMATION: Atraumatic right hip pain. COMPARISON: None available. TECHNIQUE: Two views of the right hip. FINDINGS: No acute fracture or dislocation. No joint space narrowing or marginal osteophytes. No osseous erosion. No abnormal soft tissue calcification. No evidence of femoral head avascular necrosis. XR/XR hip RT min 2V IMPRESSION: Unremarkable examination. Electronically signed by: Rodriguez Clay MD 08/15/2024 01:15 PM [facility]
== END 2024-08-15 11:45 | disposition home or self-care (01) ==
LOC: HO.HHCX 11:44
PROVIDERS: Visit Provider Emergency Medicine
DX: M25.551 Pain in right hip (principal)
CPT/HCPCS: 73502

== ENCOUNTER 2024-08-15 11:46 | Outpatient (REF) | payer OTHER, SELFPAY ==
--- NOTE | ~2024-08-15 | XR_ITS ---
EXAMINATION: XR LUMBOSACRAL SPINE CLINICAL INFORMATION: Persistent lower back pain. COMPARISON: Lumbar spine radiographs dated 01/21/2014. TECHNIQUE: Three views of the lumbosacral spine. FINDINGS: Mild levocurvature of the lumbar spine. The lumbar lordosis is maintained. No acute fracture or subluxation. No loss of vertebral body height. Loss of intervertebral disc height with endplate osteophytes at L3 through S1, progressed when compared to the prior examination. Bilateral facet arthropathy at L4-L5 and L5-S1. No concerning lytic or blastic osseous lesion. Right upper quadrant surgical clips. XR/XR lumbar spine 2-3V IMPRESSION: Moderate degenerative disc disease at L3 through S1 with bilateral facet arthropathy at L4-L5 and L5-S1. Electronically signed by: Rodriguez Clay MD 08/15/2024 01:41 PM [facility] [place]
== END 2024-08-15 11:47 | disposition home or self-care (01) ==
LOC: HO.HHCX 11:46
PROVIDERS: Visit Provider Emergency Medicine
DX: M54.50 Low back pain, unspecified (principal); V87.7XXA Person injured in collision between other specified motor vehicles (traffic), initial encounter
CPT/HCPCS: 72100

== ENCOUNTER 2024-09-12 16:48 | Outpatient (REF) | payer OTHER, MEDICAID, SELFPAY ==
--- NOTE | ~2024-09-12 | MR_ITS ---
EXAMINATION: MR LUMBAR SPINE WITHOUT CONTRAST CLINICAL INFORMATION: Lumbar radiculopathy COMPARISON: Lumbar spine radiographs from 08/15/2024. TECHNIQUE: MRI of the lumbar spine was obtained using routine sequences without contrast. FINDINGS: Mild left convex curvature of the lumbar spine. Degenerative grade 1 anterolisthesis of L5 on S1. Otherwise, normal anatomic alignment. Moderate degenerative disc disease from L3-S1. Mild degenerative disc disease at all additional levels. Associated mixed Modic type discogenic endplate changes including Modic type I discogenic edema at L2-L3 and from L4-S1 (most notably at L5-S1). Mild marrow edema within the posterior elements of L4-S1 consistent with degenerative stress reaction. No additional suspicious marrow edema. The vertebral body heights are well-maintained. The conus medullaris terminates at the level of L1. The distal spinal cord is normal in appearance. No significant abnormalities of the paraspinal musculature. Limited evaluation of the intra-abdominal structures without significant abnormalities. The abdominal aorta is of normal contour and caliber. AXIAL SPINAL LEVELS: T12-L1: Shallow diffuse disc bulge. There is mild bilateral facet joint arthropathy. There is no neural foraminal stenosis. There is no spinal canal stenosis. L1-L2: Mild diffuse disc bulge. There is moderate left and mild right facet joint arthropathy. There is no neural foraminal stenosis. There is no spinal canal stenosis. L2-L3: Shallow diffuse disc bulge. There is mild bilateral facet joint arthropathy. There is no neural foraminal stenosis. There is no spinal canal stenosis. L3-L4: Moderate diffuse disc bulge with posterior osseous ridging. There is mild bilateral facet joint arthropathy. There is moderate left and mild right neural foraminal stenosis. There is stenosis of the right subarticular zone with no overt spinal canal stenosis centrally. L4-L5: Mild diffuse disc bulge with posterior osseous ridging. There is moderate left greater than right facet joint arthropathy. There is moderate left and mild right neural foraminal stenosis. There is no spinal canal stenosis. L5-S1: Moderate diffuse disc bulge exacerbated by uncovering from anterolisthesis. There is moderate bilateral facet joint arthropathy. There is moderate left and mild right neural foraminal stenosis. There is no spinal canal stenosis. MR/MR lumbar spine wo con IMPRESSION: Moderate multilevel degenerative spondyloarthropathy of the lumbar spine as described in detail above. Most notably, there is stenosis of the right subarticular zone at L3-L4. Moderate neural foraminal stenoses from L3-S1. No overt spinal canal stenosis centrally. Electronically signed by: Orlando Muniz DO 10/23/2024 12:01 PM EST
== END 2024-09-12 16:49 | disposition home or self-care (01) ==
LOC: HO.MRI 16:48
PROVIDERS: PCP Internal Medicine; Visit Provider Nurse Practitioner Family
DX: M54.16 Radiculopathy, lumbar region (principal)
CPT/HCPCS: 72148

== ENCOUNTER 2024-11-17 10:27 | Outpatient (AMB) | payer OTHER, MEDICAID, SELFPAY ==
--- NOTE | 2024-11-17 10:30 | MHC.OFFVIS ---
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 Present Information Interpreted: clinical only Bdc Manager: Bdc Manager Present Allergies No Known Allergies [NKA] Allergy (Verified 11/17/24 10:34) Medication List - Last Reconciled 11/17/24 by Lexi Pitts CNM albuterol sulfate 90 mcg/actuation 0 mcg inhalation albuterol sulfate mg inhalation bupropion HCl XL 300 mg PO DAILY diphenhydramine HCl (Benadryl) 25 mg PO TID PRN epinephrine (EpiPen) 0.3 mg (0.3 mL) IM Q4H PRN lamotrigine 100 mg PO DAILY lidocaine 5% 1 patch topical DAILY miconazole nitrate 2% 1 appl topical BID naproxen 500 mg PO BID PRN omeprazole 20 mg PO DAILY topiramate 50 mg PO BID trazodone 50 mg PO BEDTIME zolpidem 5 mg PO BEDTIME PRN Post menopausal: Yes (2023) HPI 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 She does not have any major concerns she had her IUD taken out last year as she had no need for it anymore she did have a little bleeding for 1 day a month after it was removed but none since she does get hot flashes. She also has vaginal itching she thinks she has a yeast infection she has used the cream and says it works for a while and then she gets it again. She was told she was prediabetic she is does not know when her next appointment with her primary is but she is going to check on that appointment when she leaves here she would like cream for the yeast. She does not know when her last blood sugar check was done. She said she had talked about weight loss medications with her doctor but her doctor told her that it was difficult for them to get approved for most women. She is up-to-date on her mammograms. [facility] Medical History Asthma Surgical History Hx of cholecystectomy Hx of tubal ligation Hx of section Family History Father HTN (hypertension) Diabetes CAD (coronary artery disease) Brother Diabetes Social History Household Members Other:: son Housing: House Alcohol intake: current Alcohol intake frequency: holidays/special occasions only Patient Tobacco Use Status: Former Tobacco user Tobacco use type: Cigarette Cigarettes Per Day: 3 Current occupational status: employed Current occupation: longterm - [employer] Sexual orientation: Straight/Heterosexual Gender identity: Female Female Reproductive History Menstrual Age of Menarche: 12 control method: permanent sterilization Total pregnancies: 3 Full term: 3 Date of last pap smear: 09/04/22 (negative) History of abnormal pap smear: Yes Date of Mammogram: 07/18/24 (negative) Physical Exam Vital Signs: Last Vital Signs BP 116/72 11/17/24 10:32 BMI result Body Mass Index 33.3 Const General: healthy appearing, comfortable, no acute distress, well developed and alert Nutritional Appearance: average body habitus Orientation/consciousness: patient oriented x3 Limitations: no limitations HEENT Head: Yes normocephalic Neck Neck: Yes normal visual inspection Chest Chest palpation & inspection: normal inspection of the chest Breast/axilla inspection: normal inspection of the breasts and normal inspection of the axillae Breast/axilla palpation: normal palpation of the breasts and normal palpation of the axillae Resp Effort & Inspection: normal respiratory effort GI Inspection: Yes normal to inspection, No Abdominal wall edema and No distended Palpation (GI): Soft to palpation and nontender Other: There is some visible rectocele noted during the exam. Vagina is dark pink scant white discharge consistent with mild yeast cervix multiparous somewhat atrophic flattened against apex of vagina mobile nontender uterus small mobile nontender adnexa nontender very very good tone with Kegel with sustain muscle contraction. Soft abdominal muscle tone noted. General: Yes bladder normal to palpation External Female Exam: normal external appearance and normal appearance of the urethra Speculum Exam - Vagina: normal appearance of the vagina, normal palpation and normal vaginal discharge Speculum Exam - Cervix: normal appearance of the cervix, normal palpation and nontender Bimanual exam- vagina & uterus: normal bimanual exam, normal palpation, uterine size normal, bladder normal to palpation, consistency normal, normal palpation, uterine mobility normal, uterine shape normal, No Cervical tenderness present, non-tender and no cervical motion tenderness Bimanual Exam- Adnexa, other: normal adnexae, no masses, normal and No adnexal tenderness Neuro General: patient oriented x3 Results Reviewed Results Reviewed: vandana: Vivian Francisco Age/Sex: 52/F Attending: Lexi Pitts CNM : 1970 Submitted by: Lexi Pitts CNM Copies to: MR #: [id number] Status: DEP REF Collected: 09/04/22 Location: [facility] Received: 09/04/22 Interpretation Satisfactory for evaluation. Negative for intraepithelial lesion or malignancy. Fungal organisms consistent with Gayla species. HPV mRNA E6/E7: NOT DETECTED This assay detects E6/E7 viral messenger RNA (mRNA) from 14 high-risk HPV types (16, 18, 31, 33, 35, 39, 45, 51, 52, 56, 58, 59, 66, 68) HPV testing performed by [facility], [place], [place]. See reference laboratory portion of the EMR for entire report. Clinical Information LMP: No menses Previous PAP test: 03/12/18, WNL Material Received ThinPrep-Cervical Electronically Signed By: Aline Vital 09/29/22 6918 The Pap Test is a screening procedure with the inherent possibility of both false negative and false positive results. Results should be interpreted in the context of historic and current clinical findings. Reliability of the Pap Test is enhanced by performing the test on a regular repetitive basis. Patient: Vivian Francisco Age/Sex: 52/F MR#: [id number] Page 1 of 1 Assessment & Plan Assessment & Plan (1) Hx of tubal ligation: Code(s): Z98.51 - Tubal ligation status Category: Surgical (2) Yeast infection of the vagina: Code(s): B37.31 - Acute candidiasis of vulva and vagina Category: Medical (3) Hx of abnormal cervical Pap smear: Comment: years ago--Extremely difficult to visualize her cervix which is right behind her symphysis pubis. Large long Graves speculum was necessary yeast is present. Cervix had to be digitally located 1st she with vaginal exam so lubricant was used for the 1st time and may obscure the Pap.-- 09/04/22 pap is nge w neg hpv, ; Unable to visualize her cervix to 724 cervix was palpable behind symphysis pubis with Mirena string palpable as well Code(s): Z87.42 - Personal history of other diseases of the female genital tract Category: Medical (4) Obesity (BMI 35.0-39.9 without comorbidity): Code(s): E66.9 - Obesity, unspecified Category: Medical (5) Screen for sexually transmitted diseases: Code(s): Z11.3 - Encounter for screening for infections with a predominantly sexual mode of transmission Category: Medical (6) Prediabetes: Code(s): R73.03 - Prediabetes Category: Medical Plan -----Discussed in this visit the following: healthy balanced diet, regular and consistent exercise, getting recommended health screens, doing the best she can for her particular health concerns, kegel exercises, pap smear screening and followup recommendations, mammography screening and SBE, normal changes in cycles in her life stage--- . Reviewed the common experience of yeast infections with elevated blood sugars with pre diabetes or diabetes and discussed options. And prescribed cream and fluconazole with teaching -discussed additionally the rectocele and the lacks muscles that are partly under increased strain because of the obesity she does deal with constipation and discussed the role straining that this plays as well. she does have a very very strong good Kegel that she has been practice in and she is able sustain the contraction for long time. Discussed also the role weight and acknowledged the challenge of losing weight. She is going to check on when primary care appointment is and have further discussions about that too. Encouraged doing what ever she can to help herself lose weight. Timeframe/Date Comment One year or p.r.n. Orders: Orders CT NG by PCR Today N89.8 - Other specified noninflammatory disorders of vagina, Z20.2 - Contact with and (suspected) exposure to infections with a predominantly sexual mode of transmission Bacterial Vaginosis Panel Today N89.8 - Other specified noninflammatory disorders of vagina Medications: New fluconazole may repeat second dose 72 hrs after first dose if symptoms persist 150 mg PO Q3D 2 doses 2 tabs 1RF Refilled miconazole nitrate 2% 1 appl topical BID 85 grams 3RF Coding Level of Care Code Est Pt Prev Care 40-64y(77710) Diagnoses Hx of tubal ligation Z98.51 Yeast infection of the vagina B37.31 Hx of abnormal cervical Pap smear Z87.42 Obesity (BMI 35.0-39.9 without comorbidity) E66.9 Screen for sexually transmitted diseases Z11.3 Prediabetes R73.03
[2024-11-17 10:32] VITALS: BP 116/72; BMI 33.3
--- OUTSIDE RECORDS SUMMARY | 2024-11-17 11:24 | XMS_ITS | Clinical Summary ---
Author Organization [employer] Address [address] [place] [address] [address] [place] [address] Care Team Providers Care Jukebox Checker Name Role Phone Ana Laura Bo MD Primary Care Provide r Allergies Active Allergy Reactions Criticality Noted Date Comments Diclofenac 10/25/2024 Medications albuterol (2.5 MG/3ML) 0.083% nebulizer solutionIndicatio ns:Wheezing Take 3 mL (2.5 mg) by nebulization every 6 (six) hours if needed for wheezing or shortness of breath. 75 mL 06/16/20 24 025 Active albuterol (Ventolin HFA) 108 (90 Base) MCG/ACT inhaler INHALE 2 PUFFS BY MOUTH EVERY 6 HOURS IF NEEDED FOR WHEEZING 18 g 06/17/20 24 Active topiramate (Topamax) 100 MG tablet Take 100 mg by mouth 2 times daily. Active buPROPion SR (Wellbutrin SR) 150 MG 12 hr tablet Take 150 mg by mouth 2 times daily. Do not crush, chew, or split. Active acetaminophen (Tylenol) 500 MG tablet Take 2 tablets (1,000 mg) by mouth every 6 (six) hours if needed for moderate pain or fever. 40 tablet 08/15/20 24 Active lidocaine (Lidoderm) 5 % patch Apply 1 patch topically Once per day. Remove & discard patch within 12 hours or as directed by MD. May use 2 patches at the same time. 60 patch 2 08/15/20 24 025 Active ibuprofen 400 MG tablet Take 1 tablet (400 mg) by mouth every 6 (six) hours if needed for moderate pain or fever for up to 30 doses. 30 tablet 08/15/20 24 Active Blood Pressure kit 1 each 2 times daily. 1 kit 08/15/20 24 025 Active clotrimazole-beta methasone (Lotrisone) cream Apply topically 2 times daily. Use sparingly. Wash hands after using. Do not apply to neck or face. 15 g 08/15/20 24 Active lidocaine (Lidoderm) 5 % patchIndications: Right lumbar radiculopathy Apply 1 patch topically Once per day. Remove & discard patch within 12 hours or as directed by MD. 30 patch 1 10/10/19 25 Active methocarbamol (Robaxin) 750 MG tabletIndications :Right lumbar radiculopathy Take 1 tablet (750 mg) by mouth 4 times daily for 10 days. 40 tablet 10/10/19 25 Active amoxicillin-clavu lanate (Augmentin) 875-125 MG tablet Take 1 tablet by mouth 2 times daily. 14 tablet 10/14/19 25 Active clotrimazole (Lotrimin) 1 % vaginal creamIndications: Vulvovaginal Candidiasis Insert one applicator per vagina at bedtime for 7 nights 45 g 10/25/19 25 Active ibuprofen 800 MG tabletIndications :Right lumbar radiculopathy Take 1 tablet (800 mg) by mouth every 8 (eight) hours if needed for mild pain for up to 10 days. 30 tablet 10/10/19 25 025 ciprofloxacin-dex AMETHasone (CiproDEX) otic suspension Administer 4 drops into the left ear 2 times daily for 7 days. 7.5 mL 10/14/19 25 025 neomycin-polymyxi n-hydrocortisone (Cortisporin) otic solutionIndicatio ns:Infectious otitis externa, bilateral Administer 3 drops into each ear 3 times daily for 7 days. 10 mL 10/25/19 25 025 Active Problems Problem Noted Date Diagnosed Date Right lumbar radiculopathy 08/26/2024 Assessment & Plan (08/26/2024 6:03 PM EST): Persistent pain and radiculopathy despite PT, will order mri and refer to [facility] Contusion, scapular region 03/07/2024 History of endometrial biopsy 03/07/2024 Hx of abnormal cervical Pap smear 03/07/2024 Hx of section 03/07/2024 Hx of tubal ligation 03/07/2024 Presence of 52 mg levonorges trel-releasing intrauterine device (IUD) 03/07/2024 Screen for sexually transmitted diseases 024 Vaginal candidiasis 02/11/2024 Assessment & Plan (02/11/2024 5:55 PM EDT): -discharge on vaginal swab and microscopy findings suggestive of lynda infection -prescription for for diflucan sent to pharmacy -sample will be sent to lab for confirmation and testing of BV, STI -advised to avoid use of soap and scented vaginal products UTI symptoms 01/15/2024 Assessment & Plan (02/11/2024 5:54 PM EDT): -POCT urinalysis negative -advised continued monitoring and increased fluid intake Assessment & Plan (01/15/2024 12:29 PM EDT): Do not hold urine UA and culture After sample given she can star Macrobid Vaginal symptom 01/15/2024 Assessment & Plan (01/15/2024 12:29 PM EDT): Patient with recent BV infection Metrogel given And fluconazole due to vaginal itching, yeast infection? Leg cramping 01/15/2024 Assessment & Plan (01/15/2024 12:30 PM EDT): I advise proper hydration and report back if problem persists Neck pain 12/12/2023 Shoulder pain 12/12/2023 Tobacco dependence 11/23/2023 Allergic reaction 03/23/2023 Assessment & Plan (03/30/2023 4:33 PM EDT): Avoid triggers Benadryl PRN epipen use it if needed compliance specialist referral Degeneration of cervical intervertebral disc Acute low back pain 12/13/2018 Nicotine dependence 10/09/2017 Chronic back pain 05/25/2017 Assessment & Plan (03/13/2024 5:14 PM EDT): Resume physical therapy as it is helpful, referral made Mood disorder 05/25/2017 Hyperlipidemia 05/24/2015 Assessment & Plan (12/14/2023 12:33 PM EST): Today extensive discussion was done about life style modifications I advise healthy diet (low calorie) and cardiovascular exercise Obesity 05/14/2015 Recurrent major depressive episodes, moderate Vitamin D deficiency 08/26/2013 Iron deficiency anemia 07/26/2012 Migraine 05/03/2012 Assessment & Plan (01/15/2024 12:30 PM EDT): I advise to avoid migraine triggers like red wine, chocolate, cheese, strong perfumes C/w topomax 25mg daily and fioricet PRN Assessment & Plan (12/14/2023 12:33 PM EST): I advise to avoid migraine triggers like red wine, chocolate, cheese, strong perfumes I advise to start taking her Topamax again I prescribed also Fioricet for brake through headaches Asthma 04/02/2012 Carpal tunnel syndrome 04/02/2012 Tobacco dependence syndrome 04/02/2012 Encounters Date Type Department Care Team Description 10/31/2024 Telephone [facility] [address] [place] [phone] Dayan Carlson MA Referral 10/25/2024 12:00 PM EST Office Visit [facility] [address] [place] [phone] Ananth Saleem MD Vaginal candidiasis (Primary Dx); Infectious otitis externa, bilateral 10/25/2024 Travel 10/14/2024 11:00 AM EST Office Visit [facility] [address] [place] [phone] Camden Haley MD Acute otitis externa of left ear, unspecified type (Primary Dx) 10/10/2024 11:20 AM EST Office Visit [facility] [address] [place] [phone] Ana Laura Bo MD Right lumbar radiculopathy (Primary Dx) 08/26/2024 3:45 PM EST Office Visit [facility] [address] [place] [address] Jaclyn Becerril NP Right lumbar radiculopathy (Primary Dx) 08/26/2024 Travel 08/21/2024 Telephone [facility] [address], [place] [phone] Mildred Alfaro MA chart prep 08/18/2024 Telephone [facility] [address], [place] [phone] Camden Haley MD from Last 3 Months Immunizations Name Administration Dates Next Due Hep A, Adult 01/14/2009 Hep B, adult 07/27/2006,09/22/2005,08/22/2005 Influenza Injectable Quadriv alant Preservative Free IIV4 MDCK 06/09/2023,08/15/2022,07/22/2021,08/04 Influenza injectable quadriv alent IIV4 with preservative 07/25/2016 Influenza injectable quadriv alent preservative free 08/29/2019,08/06/2017 Influenza, IIV3, injectable 07/07/2014 Influenza, Split (incl. alan fied surface antigen) 08/26/2013,07/26/2012 MMR 08/01/2005,05/14/1984 Pfizer Covid-19 Vaccine 12+ 10/02/2023 Pneumococcal Polysaccharide PPSV23 02/23/2009 TD (adult), 2 Lf tetanus tox oid, preservative free, adsorbed 08/01/2005 Tdap 05/14/2015 Social History Tobacco Use Types Packs/Day Years Used Date Smoking Tobacco: Former Cigarettes Smokeless Tobacco: Never Tobacco Cessation:Counseling Given: Not Answered Depression Answer Date Recorded Patient Health Questionnaire-9 Score 0 03/23/2023 Housing Stability Answer Date Recorded What is your housing situation today? I have lenora michael 07/31/[address] you li ve. Do you have problems with any of the following? None of the above 07/31/2023 Food Insecurity Answer Date Recorded Within the past 12 months, y ou worried that your food would run out before you got money to buy more: Never True 07/31/2023 Within the past 12 months,th e food you bought just didn't last and you didn't have enough money to get more: Never True Transportation Answer Date Recorded In the past 12 months, has l ack of transportation kept you from medical appts, meetings, work or from getting things needed for daily living? No 07/31/2023 Utilities Answer Date Recorded In the past 12 months, has t he electric, gas, oil or water company threatened to shut off services in your home? No 07/31/2023 Depression Answer Date Recorded Patient Health Questionnaire-2 Score 0 03/23/2023 Comments No Sex and Gender Information Value Date Recorded Sex Assigned at Female 08/07/2022 10:15 AM EDT Legal Sex Female 10:15 AM EDT Gender Identity Female 08/07/2022 10:15 AM EDT Sexual Orientation Choose not to disclose 2021 10:15 AM EDT Last Filed Vital Signs Vital Sign Reading Time Taken Comments Blood Pressure 122/76 10/25/2024 11:09 AM EST Pulse 84 10/25/2024 11:09 AM EST Temperature 36.1 ??C (97 ??F) 10/25/2024 11:09 AM EST Respiratory Rate 16 10/25/2024 11:09 AM EST Oxygen Saturation 98% 10/25/2024 11:09 AM EST Inhaled Oxygen Concentration - - Weight 92.3 kg (203 lb 8 oz) 10/25/2024 11:09 AM EST Height 165.1 cm (5' 5 ) 10/25/2024 11:09 AM EST Body Mass Index 33.86 10/25/2024 11:09 AM EST Plan of Treatment Health Maintenance Due Date Last Done Comments CT Colonography 1972 Colonoscopy 1972 Colorectal Cancer Screening 1972 FIT DNA/Cologuard 1972 FIT 1972 FOBT 1972 Sigmoidoscopy 1972 Alcohol/Substance Use Screening 1984 Family Planning (PISQ) 1987 Hepatitis A Vaccines (2 of 2 - Risk 2-dose series) 07/16/2009 01/14/2009 Pneumococcal Vaccine: 50+ Years (2 of 2 - PCV) 02/23/2010 02/23/2009 Zoster Vaccines (1 of 2) 2022 Depression Screening 03/23/2024 03/23/2023, 03/23/20 23 COVID-19 Vaccine ( season) 2024 10/02/2023, 08/05/2021, 01/10/2021 SDOH Screening 12/06/2024 12/07/2023 Diabetes: Hemoglobin A1C 12/26/2024 12/27/2023 DTaP/Tdap/Td Vaccines (2 - Td or Tdap) 05/14/2025 05/14/2015, 08/01/2005 Mammogram 07/18/2025 07/18/2024, 06/08, 10/22/2017 Pap Smear 09/04/2025 09/04/2022 Tobacco Screening 10/25/2025 10/25/2024 Cervical Cancer Screening 09/04/2027 HPV/Cotest 09/04/2027 09/04/2022, 03/11/2018 Lipid Panel 12/26/2028 12/27/2023 RSV Patients and Patients Aged 60 years or older (1 - 1-dose 75+ series) 2047 Hepatitis B Vaccines Completed 07/27/2006, 09/22/2005, 08/22/2005 HIV Screening Completed 09/04/2022 Hepatitis C Screening Completed 09/04/2022 Influenza Vaccine Completed 06/24/2024, , 08/15/2022, Additional history exists HIB Vaccines Aged Out No longer eligi ble based on patient's age to complete this topic HPV Vaccines Aged Out No longer eligi ble based on patient's age to complete this topic IPV Vaccines Aged Out No longer eligi ble based on patient's age to complete this topic Meningococcal Vaccine Aged Out No scott peyman eligible based on patient's age to complete this topic RSV under 20 months Aged Out No longe r eligible based on patient's age to complete this topic Rotavirus Vaccines Aged Out No longer eligible based on patient's age to complete this topic Procedures Procedure Name Priority Date/Time Associated Diagnosis Comments CHLAMYDIA/N. GONORRHOEAE RNA, TMA, UROGENITAL Routine 10/25/2024 12:03 PM EST Vaginal candidiasis BACTERIAL VAGINOSIS PANEL Routine 10/25/2024 12:03 PM EST Vaginal candidiasis MR LUMBAR SPINE WO CONTRAST Routine 09/12/2024 4:45 PM EST Right lumbar radiculopathy BI MAMMOGRAM SCREENING TOMOSYNTHESIS BILATERAL Routine 07/18/2024 3:25 PM EDT HEMOGLOBIN A1C Routine 12/27/2023 8:29 AM EDT Moderate mixed hyperlipidemia not requiring statin therapy LIPID PANEL, STANDARD Routine 12/27/2023 8:29 AM EDT Moderate mixed hyperlipidemia not requiring statin therapy ZZZ HISTORICAL HEPATITIS C ANTIBODY Routine 09/04/2022 12:14 PM EST HPV MRNA E6/E7 REFLEX TO HPV 16, 18/45 Routine 09/04/2022 11:33 AM EST PAP SMEAR Routine 09/04/2022 11:33 AM EST from Last 3 Months or Most Recently Relevant to Health Maintenance Results * Bacterial Vaginosis Panel (10/25/2024 12:03 PM EST) TRICHOMONAS VAGINALIS DETECTION BY PCR NOT DETECTED Not Detect [facility] BACTERIAL VAGINOSIS DETECTION BY PCR NEGATIVE Negative [facility] Comment:The BV organism targ ets of the Xpert Xpress MVP test can becommensal in women; Xpert Xpress MVP positive results forbacterial vaginosis should be considered in conjunction withother clinical and patient information to determine thedisease status. Organisms that are not detected by the XpertXpress MVP test have also been reported to be associatedwith BV and aerobic vaginitis.The Xpert Xpress MVP test performance has not been evaluatedin patients under the age of 14. LYNDA GROUP DETECTION BY PCR NOT DETECTED Not Detect [facility] Lynda glab krusei PCR NOT DETECTED Not Detect [facility] Swab Vaginal structure / Unknown 10/25/2024 12:03 PM EST 10/25/2024 2:01 PM EST us Ananth Saleem MD LAB MICROBIOLOGY - GENERAL ORDER NATALI Final Result [facility] [address] [place] [address] [phone] * Chlamydia/N. Gonorrhoeae RNA, TMA, Urogenitial (10/25/2024 12:03 PM EST) CT PCR NOT DETECTED Not Detect. [facility] Comment:A not detected test result does not exclude the possibilityof infection because test results can be affected byimproper specimen collection, concurrent antibiotic therapy,or the number of organisms in the specimen which may bebelow the sensitivity of the test. As with many diagnostictests, results from the Xpert CT/NG assay should beinterpreted in conjunction with other laboratory andclinical data available to the clinician.Xpert CT/NG performance has not been evaluated in patientsless than 14 years of age. The assay should not be used forthe evaluationof suspected sexual abuse or for other medico-legalindications. Additional testing is recommended in anycircumstance when false positive or false negative resultscould lead to adverse medical, social or psychologicalconsequences. NG PCR NOT DETECTED Not Detect. [facility] Comment:A not detected test result does not exclude the possibilityof infection because test results can be affected byimproper specimen collection, concurrent antibiotic therapy,or the number of organisms in the specimen which may bebelow the sensitivity of the test. As with many diagnostictests, results from the Xpert CT/NG assay should beinterpreted in conjunction with other laboratory andclinical data available to the clinician.Xpert CT/NG performance has not been evaluated in patientsless than 14 years of age. The assay should not be used forthe evaluationof suspected sexual abuse or for other medico-legalindications. Additional testing is recommended in anycircumstance when false positive or false negative resultscould lead to adverse medical, social or psychologicalconsequences. Swab (Vaginal Swab) 10/25/2024 12:03 PM EST 10/25/2024 2:01 PM EST Narrative [facility] - 10/26/2024 12:15 PM EST Vaginal us Ananth Saleem MD LAB MICROBIOLOGY - GENERAL ORDER NATALI Final Result [facility] [address] [facility] [place] [address] [phone] * MR Lumbar Spine w/o Contrast (09/12/2024 4:45 PM EST) Anatomical Region Laterality Modality Spine, L-spine Magnetic Resonan ce 09/12/2024 4:45 PM EST Narrative 10/23/2024 12:04 PM EST ? [facility] ?[address] ?[place] [address] ? Magnetic Resonance Report ? Signed ? Patient: Vivian Francisco ?MR#: [id number] ?? 7 ? : 1970 ?Acct:[id number] ? Age/Sex: 54 / F ?ADM Date: 09/12/24 ? Loc: HO.MRI ? Attending Dr: Jaclyn Becerril PIPING ENGINEER ? Ordering Physician: Jaclyn Becerril NP ?? Date of Service: 09/12/24 ?? Procedure(s): MR lumbar spine wo con ?? Accession Number(s): [id number] ? cc: Ana Laura Bo MD; Jaclyn Becerril NP ? EXAMINATION: ?? MR LUMBAR SPINE WITHOUT CONTRAST ? CLINICAL INFORMATION: ?? Lumbar radiculopathy ? COMPARISON: ?? Lumbar spine radiographs from 08/15/2024. ? TECHNIQUE: ?? MRI of the lumbar spine was obtained using routine sequences without ?? contrast. ? FINDINGS: ?? Mild left convex curvature of the lumbar spine. Degenerative grade 1 ?? anterolisthesis of L5 on S1. Otherwise, normal anatomic alignment. ?? Moderate degenerative disc disease from L3-S1. Mild degenerative disc ?? disease at all additional levels. Associated mixed Modic type ?? discogenic endplate changes including Modic type I discogenic edema at ?? L2-L3 and from L4-S1 (most notably at L5-S1). Mild marrow edema within ?? the posterior elements of L4-S1 consistent with degenerative stress ?? reaction. No additional suspicious marrow edema. The vertebral body ?? heights are well-maintained. The conus medullaris terminates at the ?? level of L1. The distal spinal cord is normal in appearance. ? No significant abnormalities of the paraspinal musculature. Limited ?? evaluation of the intra-abdominal structures without significant ?? abnormalities. The abdominal aorta is of normal contour and caliber. ? AXIAL SPINAL LEVELS: ?? T12-L1: Shallow diffuse disc bulge. There is mild bilateral facet joint ?? arthropathy. There is no neural foraminal stenosis. There is no spinal ?? canal stenosis. ? L1-L2: Mild diffuse disc bulge. There is moderate left and mild right ?? facet joint arthropathy. There is no neural foraminal stenosis. There ?? is no spinal canal stenosis. ? L2-L3: Shallow diffuse disc bulge. There is mild bilateral facet joint ?? arthropathy. There is no neural foraminal stenosis. There is no spinal ?? canal stenosis. ? L3-L4: Moderate diffuse disc bulge with posterior osseous ridging. ?? There is mild bilateral facet joint arthropathy. There is moderate left ?? and mild right neural foraminal stenosis. There is stenosis of the ?? right subarticular zone with no overt spinal canal stenosis centrally. ? L4-L5: Mild diffuse disc bulge with posterior osseous ridging. There is ?? moderate left greater than right facet joint arthropathy. There is ?? moderate left and mild right neural foraminal stenosis. There is no ?? spinal canal stenosis. ? L5-S1: Moderate diffuse disc bulge exacerbated by uncovering from ?? anterolisthesis. There is moderate bilateral facet joint arthropathy. ?? There is moderate left and mild right neural foraminal stenosis. There ?? is no spinal canal stenosis. ? MR/MR lumbar spine wo con ?? IMPRESSION: ?? Moderate multilevel degenerative spondyloarthropathy of the lumbar ?? spine as described in detail above. Most notably, there is stenosis of ?? the right subarticular zone at L3-L4. Moderate neural foraminal ?? stenoses from L3-S1. No overt spinal canal stenosis centrally. ? Electronically signed by: ??Orlando Muniz DO ??10/23/2024 12:01 PM EST RP ? Dictated By: ?Camden Muniz DO ? Signed By: ?<Electronically signed by Camden Muniz DO in OV> ? 10/23/24 1201 ? DD/ 1645 ? TD/TT: 09/12/24 1715 ? Cake Puncher: JL ? Procedure Note Donotuseinterpreter, Image - 10/23/[address] [phone] Magnetic Resonance Report Signed Patient: Vivian FranciscoMR#: [id number] 7 : 1970Acct:[id number] Age/Sex: 54 / FADM Date: 09/12/24 Loc: HO.MRI Attending Dr: Jaclyn Becerril PIPING ENGINEER Ordering Physician: Jaclyn Becerril NP Date of Service: 09/12/24 Procedure(s): MR lumbar spine wo con Accession Number(s): [id number] cc: Ana Laura Bo MD; Jaclyn Becerril PIPING ENGINEER EXAMINATION: MR LUMBAR SPINE WITHOUT CONTRAST CLINICAL INFORMATION: Lumbar radiculopathy COMPARISON: Lumbar spine radiographs from 08/15/2024. TECHNIQUE: MRI of the lumbar spine was obtained using routine sequences without contrast. FINDINGS: Mild left convex curvature of the lumbar spine. Degenerative grade 1 anterolisthesis of L5 on S1. Otherwise, normal anatomic alignment. Moderate degenerative disc disease from L3-S1. Mild degenerative disc disease at all additional levels. Associated mixed Modic type discogenic endplate changes including Modic type I discogenic edema at L2-L3 and from L4-S1 (most notably at L5-S1). Mild marrow edema within the posterior elements of L4-S1 consistent with degenerative stress reaction. No additional suspicious marrow edema. The vertebral body heights are well-maintained. The conus medullaris terminates at the level of L1. The distal spinal cord is normal in appearance. No significant abnormalities of the paraspinal musculature. Limited evaluation of the intra-abdominal structures without significant abnormalities. The abdominal aorta is of normal contour and caliber. AXIAL SPINAL LEVELS: T12-L1: Shallow diffuse disc bulge. There is mild bilateral facet joint arthropathy. There is no neural foraminal stenosis. There is no spinal canal stenosis. L1-L2: Mild diffuse disc bulge. There is moderate left and mild right facet joint arthropathy. There is no neural foraminal stenosis. There is no spinal canal stenosis. L2-L3: Shallow diffuse disc bulge. There is mild bilateral facet joint arthropathy. There is no neural foraminal stenosis. There is no spinal canal stenosis. L3-L4: Moderate diffuse disc bulge with posterior osseous ridging. There is mild bilateral facet joint arthropathy. There is moderate left and mild right neural foraminal stenosis. There is stenosis of the right subarticular zone with no overt spinal canal stenosis centrally. L4-L5: Mild diffuse disc bulge with posterior osseous ridging. There is moderate left greater than right facet joint arthropathy. There is moderate left and mild right neural foraminal stenosis. There is no spinal canal stenosis. L5-S1: Moderate diffuse disc bulge exacerbated by uncovering from anterolisthesis. There is moderate bilateral facet joint arthropathy. There is moderate left and mild right neural foraminal stenosis. There is no spinal canal stenosis. MR/MR lumbar spine wo con IMPRESSION: Moderate multilevel degenerative spondyloarthropathy of the lumbar spine as described in detail above. Most notably, there is stenosis of the right subarticular zone at L3-L4. Moderate neural foraminal stenoses from L3-S1. No overt spinal canal stenosis centrally. Electronically signed by: Orlando Muniz DO 10/23/2024 12:01 PM [facility] Dictated By: Camden Muniz DO Signed By: <Electronically signed by Camden Muniz DO in OV> 10/23/24 1201 DD/ 1645 TD/TT: 09/12/24 1715 Cake Puncher: JAMES Jaclyn Becerril NP IM MRI PROCEDURES Final Result * BI Mammogram Screening Tomosynthesis Bilateral (07/18/2024 3:25 PM EDT) Anatomical Region Laterality Modality Breast Bilateral Mammography 07/18/2024 3:25 PM EDT Narrative 07/31/2024 9:45 PM EDT ? [facility] [place] ? [address] ?[place] [address] ? Mammography Report ? Signed ? Patient: Nolan,Vivian ?MR#: [id number] ?? 7 ? : 1970 ?Acct:[id number] ? Age/Sex: 54 / F ?ADM Date: 10/11/24 ? Loc: HO.MAMMO ? Attending Dr: Ana Laura Rodas MD ? Ordering Physician: Ana Laura Bo MD ?Results: ?? 1Negative ? Date of Service: 07/18/24 ?Follow Up: 1 Year From Orig ?? inal Mammogram ? Procedure(s): MM tomosynthesis screening BI ?? Accession Number(s): [id number] ? cc: Ana Laura Bo MD ? EXAMINATION: ?? MM SCREENING DIGITAL BREAST TOMOSYNTHESIS, BILATERAL ? CLINICAL INFORMATION: ? Screening. Asymptomatic. ? COMPARISON: ?? Mammography: Comparison is made with available priors ? TECHNIQUE: ?? Digital breast mammography with tomosynthesis is performed in both the ?? craniocaudal and mediolateral oblique views along with computer-aided ?? detection (CAD). ? FINDINGS: ?? There are scattered areas of fibroglandular density (ACR BI-RADS breast ?? composition Category b). ? There are no significant masses, abnormal calcifications, or other ?? abnormalities. ? MM/MM tomosynthesis screening BI ?? IMPRESSION: ?? No mammographic evidence of malignancy. ? ASSESSMENT: ? BI-RADS BI-RADS 1 - Negative ? RECOMMENDATION: ?? Routine annual mammography screening. ? 1 year F/U ? This examination should not preclude the clinical evaluation of a ?? suspicious palpable abnormality. ? This patient's information was entered into a reminder system with a ?? target due date for their next mammogram. ? Electronically signed by: ??Erma Mendieta DO ??07/31/2024 09:42 PM EDT ?? RP ? Dictated By: ?Erma Mendieta DO ? Signed By: ?<Electronically signed by Erma Menditea, DO in OV> ? 07/31/242 ? DD/ 1525 ? TD/TT: 07/18/24 1534 ? Cake Puncher: ? Procedure Note Donotuseinterpreter, Image - 07/31/2024 [place] [facility] [address] [place] [address] Mammography Report Signed Patient: Vivian FranciscoMR#: [id number] 7 : 1970Acct:[id number] Age/Sex: 54 / FADM Date: 07/18/24 Loc: HO.MAMMO Attending Dr: Ana Laura Rodas MD Ordering Physician: Ana Laura Bo MDResults: 1Negative Date of Service: 07/18/24Follow Up: 1 Year From Orig inal Mammogram Procedure(s): MM tomosynthesis screening BI Accession Number(s): [id number] cc: Ana Laura Bo MD EXAMINATION: MM SCREENING DIGITAL BREAST TOMOSYNTHESIS, BILATERAL CLINICAL INFORMATION: Screening. Asymptomatic. COMPARISON: Mammography: Comparison is made with available priors TECHNIQUE: Digital breast mammography with tomosynthesis is performed in both the craniocaudal and mediolateral oblique views along with computer-aided detection (CAD). FINDINGS: There are scattered areas of fibroglandular density (ACR BI-RADS breast composition Category b). There are no significant masses, abnormal calcifications, or other abnormalities. MM/MM tomosynthesis screening BI IMPRESSION: No mammographic evidence of malignancy. ASSESSMENT: BI-RADS BI-RADS 1 - Negative RECOMMENDATION: Routine annual mammography screening. 1 year F/U This examination should not preclude the clinical evaluation of a suspicious palpable abnormality. This patient's information was entered into a reminder system with a target due date for their next mammogram. Electronically signed by: Erma Mendieta DO 07/31/2024 09:42 PM EDT RP Dictated By: Erma Mendieta DO Signed By: <Electronically signed by Erma Mendieta DO in OV> 07/31/242141 DD/ 1525 TD/TT: 07/18/24 1534 Cake Puncher: Ana Laura Rodas MD IMG BI PROCEDURES Mikey campos Result - Final * Hemoglobin A1c (12/27/2023 8:29 AM EDT) Hemoglobin A1c 5.8 <6.0 % [facility] Comment:Hemoglobin A1C Refer ence Range Adults: 4.8 - 6.0 % Non diabetic: < 6.0 % Goal: < 7.0 %Additional Action Suggested: > 8.0 %Note: Hemoglobin A1c results are invalid for patients with abnormal amounts of HbF. Blood transfusions may impact the HbA1c concentration in the patient sample. Estimated Average Glucose 120 mg/dL [facility] Comment:eAG = Estimated ave rage glucose which is %A1C expressed asaverage glucose, using the formula of the I4G-XufcvpjLtmigkb Glucose study (ADAG), Diabetes Care, Vol.31,#8,May. 2007 Blood Venous blood specimen / Unknown 12/27/2023 8:29 AM EDT 12/27/2023 8:29 AM EDT us Ana Laura Rodas MD LAB BLOOD ORDERABLES Final Result [facility] [address] [place] [address] [phone] * (ABNORMAL) Lipid Panel, Standard (12/27/2023 8:29 AM EDT) Triglycerides 71 <150 mg/dL [facility] Comment:Desirable Triglyceri de: less than 150 mg/dLBorderline High Triglyceride 150-199 mg/dLHigh Triglyceride: 200-499 mg/dLVery High Triglyceride: greater than or equal to 5OO mg/dL Cholesterol 200(H) <200 mg/dL [facility] Comment:Desirable Cholestero l: less than 200 mg/dLBorderline High Cholesterol: 200-239 mg/dLHigh Cholesterol: greater than 239 mg/dL LDL Cholesterol Calculated 143(H) <100 mg/dL [facility] Comment:Desirable LDL: less than 100 mg/dLNear Optimal/Above Optimal LDL: 110- 129 mg/dLBorderline High LDL: 130-159 mg/dLHigh LDL: 160-189 mg/dLVery High LDL: greater than or equal to 190 mg/dL HDL Cholesterol 43 >40 mg/dL [facility] Comment:Desirable HDL: great er than 40 mg/dL Note: This HDL assay may give artificially low results in patients with liver disease. Blood Venous blood specimen / Unknown 12/27/2023 8:29 AM EDT 12/27/2023 8:29 AM EDT Ana Laura Rodas MD LAB BLOOD ORDERABLES Final Result [facility] [address] [place] [address] [phone] * (ABNORMAL) Hepatitis C Antibody (09/04/2022 12:14 PM EST) Pathologist [facility] Hepatitis C Antibody Reactive(A) Nonreactive [facility] Comment:Presumptive evidence of antibodies to HCV. HIV AB/AG Nonreactive Nonreactive [facility] Comment: HIV-1 p24 Ag and/or HIV-1/HIV-2 Ab not detected. ?? A test result that is nonreactive does not exclude the possibility of exposure to or infection with HIV-1 and/or HIV-2. Nonreactive results in this assay for individuals with prior exposure to HIV-1 and/or HIV-2 may be due to antigen and antibody levels that are below the limit of detection of this assay. ?? The [employer] HIV Ag/Ab Combo assay result and supplemental assay results should be interpreted in conjunction with the patient's clinical presentation, history and other laboratory results. ??If the results are inconsistent with clinical evidence, additional testing is suggested to confirm the result. Hepatitis B Surface Antigen Negative Negative [facility] 09/04/2022 12:1 4 PM EST [place] HISTORICAL/NON ORDERABLE LABS Fi nal Result Performing Organization Address City/[facility]/ZIP Co de Phone Number [facility] * HPV mRNA E6/E7 w/Reflex to HPV Genotypes 16, 18/45 (09/04/2022 11:33 AM EST) HPV nRNA E6/E7 Not Detected Not Detected [facility] Comment:Methodology: Transcr iption-Mediated AmplificationThis assay detects E6/E7 viral messenger RNA (mRNA) from 14high-risk HPV types (16,18,31,33,35,39,45,51,52,56,58,59,66,68).Cervical sources are required for HPV testing.If a vaginal source from a patient who has had atotal hysterectomy with removal of cervix wassubmitted, please contact the testing laboratoryfor alternative testing options.For additional information, please refer tohttp://education.[facility]/faq/UEU562n3(This link if provided for information/educational purposes only.)THIS TEST WAS PERFORMED AT:[facility] [place] [address],[place] [phone] NUNN MD HPV mRNA E6/E7 [facility] HPV 16 RNA [facility] HPV 18/45 RNA [facility] 09/04/2022 11:3 3 AM EST 09/04/2022 12:00 PM EST [facility] External Provider LAB CYT OLOGY ORDERABLES Final Result Performing Organization Address City/[facility]/ZIP Co de Phone Number [facility] [address] [place] [address] [phone] * Pap Smear (09/04/2022 11:33 AM EST) 09/04/2022 11:3 3 AM EST 09/04/2022 12:00 PM EST Narrative [facility] - 09/29/2022 1:29 PM EST ----- ------- Name: Vivian Francisco ?Age/Sex: 52/F ? : 1970 Unit#: [id number] ?? Attend Dr: Lexi Pitts CNM ?Re09/04/22 ?Status: DEP REF ? Location: HO.LNP ?Disch: ? ----- ------- SPEC : [id number] ?RECD: 09/04/22-1200 ? STATUS: ??SOUT ? REQ NUM: [id number] ? EVELIA: 09/04/22-1133 ? SUBM DR: Lexi Pitts CNM ? ENTERED: ??09/05/22 ?SP TYPE: Pap Smr ?OTHR : ? ORDERED: ??Pap Smear ? Interpretation ?? Satisfactory for evaluation. ?? Negative for intraepithelial lesion or malignancy. ?? Fungal organisms consistent with Lynda species. ? HPV mRNA E6/E7: ?NOT DETECTED ? This assay detects E6/E7 viral messenger RNA (mRNA) from 14 high-risk HPV types (16, 18, ?? 31, 33, 35, 39, 45, 51, 52, 56, 58, 59, 66, 68) ? HPV testing performed by [employer], [place], [place]. ??See reference laboratory ?? portion of the EMR for entire report. ?Clinical Information LMP: No menses Previous PAP test: 03/12/18, WNL ? Material Received ?? ThinPrep-Cervical ----- ------- Signed (signature on file) Aline Vela Zahraa 09/29/22 4011 ? ----- ------- ? END OF REPORT ? us [facility] External Provider LAB [facility] [place] Final Result [facility] [address] [place] [address] [phone] from Last 3 Months or Most Recently Relevant to Health Maintenance Insurance [facility] [employer]CIAL MD Rolando [id number] Care Teams Jukebox Checker Relationship Specialty Start Date End Date Ana Laura Bo MD [address] [place] [phone] PCP - General Family Medicine 06/19/18
--- OUTSIDE RECORDS SUMMARY | 2024-11-17 11:24 | XMS_ITS | Encounter Summary ---
Author Organization [employer] Address [address] [place] [address] 7 [place] [address] Care Team Providers Care Degreaser Operator Name Role Phone Ana Laura Bo MD Primary Care Provide r Reason for Visit * Reason Onset Date Comments Referral 10/31/2024 Encounter Details Date Type Department Care Team ([facility] st Contact Info) Description 10/31/2024 Telephone [facility] MEDICINE [address] [place], [place] [phone] Dayan Carlson MA Referral Social History Tobacco Use Types Packs/Day Years Used Date Smoking Tobacco: Former Cigarettes Smokeless Tobacco: Never Depression Answer Date Recorded Patient Health Questionnaire-9 [...] not to disclose 2021 10:15 AM EDT documented as of this encounter Miscellaneous Notes * Telephone Encounter - Dayan Carlson MA - 10/31/2024 11:57 AM EST Called pt to let her know that the referral that was placed to Physiatry does not accept her insurance. Pt stated that she would look into it herself. documented in this encounter Plan of Treatment Not on file documented as of this encounter Visit Diagnoses Not on filedocumented in this encounter Additional Health Concerns Assessment Noted Time PHQ-9 Depression Total Score: 0 03/23/20 23 11:05 AM EDT documented as of this encounter Care Teams Degreaser Operator Relationship Specialty Start Date End Date Ana Laura Bo MD [address] [place] [phone] PCP - General Family Medicine 06/19/18 documented as of this encounter
--- OUTSIDE RECORDS SUMMARY | 2024-11-17 11:24 | XMS_ITS | Encounter Summary ---
Author Organization [employer] Address [address] [place] [address] 7 [place] [address] Care Team Providers Care Enforcement Officer Name Role Phone Ana Laura Bo MD Primary Care Provide r Encounter Details Date Type Department Care Team (Latest Contact Info) Description 10/25/2024 Travel Social History Tobacco Use Types Packs/Day Years [...] AM EDT documented as of this encounter Plan of Treatment Not on file documented as of this encounter Visit Diagnoses Not on filedocumented in this encounter Additional Health Concerns Assessment Noted Time PHQ-9 Depression Total Score: 0 03/23/20 23 11:05 AM EDT documented as of this encounter Care Teams Enforcement Officer Relationship Specialty Start Date End Date Ana Laura Bo MD [address] [place] [phone] PCP - General Family Medicine 06/19/18 documented as of this encounter
--- OUTSIDE RECORDS SUMMARY | 2024-11-17 11:24 | XMS_ITS | Encounter Summary ---
Author Organization [employer] Address [address] [place] [address] 7 [place] [address] Care Team Providers Care Retrimmer Name Role Phone Ana Laura Bo MD Primary Care Provide r Reason for Visit * Reason Comments Med Refill Encounter Details Date Type Department Care Team (Late st Contact Info) Description 06/16/2024 Refill [facility] MEDICINE [address] [place], [place] [phone] Ana Laura Bo MD [address] [place], [place] [phone] Social History Tobacco Use Types Packs/Day Years Used Date Smoking Tobacco: Former Cigarettes Smokeless Tobacco: Never Depression Answer Date Recorded Patient Health Questionnaire-9 Score 0 03/23/2023 Housing Stability Answer Date Recorded What is your housing situation today? I have lenoratrell michael 07/31/[address] you [...] Patient Health Questionnaire-2 Score 0 03/23/2023 Comments Unknown Sex and Gender Information Value Date Recorded [...] documented as of this encounter Care Teams Retrimmer Relationship Specialty Start Date End Date Ana Laura Bo MD [address] [place] [phone] PCP - General Family Medicine 06/19/18 documented as of this encounter
--- OUTSIDE RECORDS SUMMARY | 2024-11-17 11:24 | XMS_ITS | Encounter Summary ---
Author Organization [employer] Address [address] [place] [address] 7 [place] [address] Care Team Providers Care Box Spring Frame Builder Name Role Phone Ana Laura Bo MD Primary Care Provide r Reason for Visit * Reason Comments Vaginal Itching Encounter Details Date Type Department Care Team ([facility] st Contact Info) Description 10/25/2024 12:00 PM EST Office Visit [facility] [address] [place] [address] [phone] Ananth Saleem MD [address] [place], [place] [phone] Vaginal candidiasis (Primary Dx); Infectious otitis externa, bilateral Social History Tobacco Use Types Packs/Day Years [...] AM EDT documented as of this encounter Last Filed Vital Signs Vital Sign Reading [...] Mass Index 33.86 10/25/2024 11:09 AM EST documented in this encounter Progress Notes * Ananth Saleem MD - 10/25/2024 12:00 PM EST Subjective History was provided by the patient. Vivian Francisco is a 54 y.o. female who presents for evaluation of ongoing ear pain (initially started on the left side, now involving right side) for 2 weeks. Also with vaginal discharge and itching for 2 days. Discharge described as thick and white. Denies dysuria or hematuria. Denies F/C/N/V/D. Was evaluated on 10/14/2024 for left OE. Prescribed Augmentin PO and Cipro-HC drops. Systemic Augmentin was prescribed due to a concern of cellulitis. States slight improvement, but still bothersome. Objective Vitals: 10/25/24 1109 BP: 122/76 BP Location: Left arm Patient Position: Sitting BP Cuff Size: Large adult Pulse: 84 Resp: 16 Temp: 97 ??F (36.1 ??C) TempSrc: Temporal SpO2: 98% Weight: 203 lb 8 oz (92.3 kg) Height: 5' 5 (1.651 m) Physical Exam Vitals reviewed. Constitutional: Appearance: Normal appearance. She is normal weight. HENT: Head: Normocephalic and atraumatic. Right Ear: Tympanic membrane and external ear normal. Left Ear: Tympanic membrane and external ear normal. Ears: Comments: Bilateral EAC erythematous and edematous; scant amount of purulent discharge noted in right EAC. No auricular erythema. TM's clear. Nose: Nose normal. No congestion or rhinorrhea. Mouth/Throat: Mouth: Mucous membranes are moist. Pharynx: Oropharynx is clear. No oropharyngeal exudate or posterior oropharyngeal erythema. Eyes: Extraocular Movements: Extraocular movements intact. Conjunctiva/sclera: Conjunctivae normal. Pupils: Pupils are equal, round, and reactive to light. Cardiovascular: Rate and Rhythm: Normal rate and regular rhythm. Heart sounds: Normal heart sounds. Pulmonary: Effort: Pulmonary effort is normal. Breath sounds: Normal breath sounds. Abdominal: General: Abdomen is flat. There is no distension. Palpations: Abdomen is soft. Tenderness: There is no abdominal tenderness. There is no right CVA tenderness, left CVA tenderness, guarding or rebound. Genitourinary: Comments: Wet mount (with CHIQUI): No clue cells or Trich. Hyphae noted. Musculoskeletal: General: Normal range of motion. Cervical back: Normal range of motion and neck supple. Skin: General: Skin is warm and dry. Neurological: General: No focal deficit present. Mental Status: She is alert and oriented to person, place, and time. Mental status is at baseline. Psychiatric: Mood and Affect: Mood normal. Behavior: Behavior normal. Thought Content: Thought content normal. Judgment: Judgment normal. Vivian was seen today for vaginal itching. Diagnoses and all orders for this visit: Vaginal candidiasis (Primary) - Bacterial Vaginosis Panel - Chlamydia/N. Gonorrhoeae RNA, TMA, Urogenitial - clotrimazole (Lotrimin) 1 % vaginal cream; Insert one applicator per vagina at bedtime for 7 nights Infectious otitis externa, bilateral - zvjgmzxo-juacutkiv-fhdkrunqqthmgw (Cortisporin) otic solution; Administer 3 drops into each ear 3times daily for 7 days. Patient presents to [facility] with bilateral OE and vaginal Candidiasis Candidiasis likely due to recent Augmentin use Discussed probiotic use Treat with Gyne-Lotrimin 1% suppository nightly for 1 week Will send out BV panel as well Also with bilateral OE Advised to avoid Q-tip use and water exposure Will change Rx to Cortisporin Otic as no complete resolution with Cipro-HC drops Potential adverse effects of the medications reviewed States unable to fill Rx at outside pharmacy due to limited health insurance Prefers to have Rx sent to [facility] pharmacy Indications for UC/ER use reviewed Advised to contact the clinic if persistent or worsening symptoms documented in this encounter Plan of Treatment Not on file documented as of this encounter Procedures Procedure Name Priority Date/Time Associated Diagnosis Comments BACTERIAL VAGINOSIS PANEL Routine 10/25/2024 12:03 PM EST Vaginal candidiasis CHLAMYDIA/N. GONORRHOEAE RNA, TMA, UROGENITAL Routine 10/25/2024 12:03 PM EST Vaginal candidiasis documented in this encounter Results * Chlamydia/N. Gonorrhoeae RNA, TMA, Urogenitial (10/25/2024 12:03 PM EST) CT PCR NOT DETECTED Not Detect. [facility] Comment:A not detected test result does [...] psychologicalconsequences. NG PCR NOT DETECTED Not Detect. [facility] Comment:A not detected test result does [...] PM EST 10/25/2024 2:01 PM EST Narrative [facility] - 10/26/2024 12:15 PM EST Vaginal us Ananth Saleem MD LAB MICROBIOLOGY - GENERAL ORDER NATALI Final Result [facility] [address] [place] [phone] * Bacterial Vaginosis Panel (10/25/2024 12:03 PM EST) TRICHOMONAS VAGINALIS DETECTION BY PCR NOT DETECTED Not Detect [facility] BACTERIAL VAGINOSIS DETECTION BY PCR NEGATIVE Negative [facility] Comment:The BV organism targ ets of [...] evaluatedin patients under the age of 14. GAYLA GROUP DETECTION BY PCR NOT DETECTED Not Detect [facility] Gayla glab krusei PCR NOT DETECTED Not Detect [facility] Swab Vaginal structure / Unknown 10/25/2024 12:03 PM EST 10/25/2024 2:01 PM EST us Ananth Saleem MD LAB MICROBIOLOGY - GENERAL ORDER NATALI Final Result [facility] [address] [place] [phone] [phone] documented in this encounter Visit Diagnoses Diagnosis Vaginal candidiasis- Primary Candidiasis of vulva and vagina Infectious otitis externa, bilateral documented in this encounter Additional Health Concerns Assessment Noted Time PHQ-9 Depression Total Score: 0 03/23/20 23 11:05 AM EDT documented as of this encounter Care Teams Box Spring Frame Builder Relationship Specialty Start Date End Date Ana Laura Bo MD [address] [place] [address] PCP - General Family Medicine 06/19/18 documented as of this encounter
--- OUTSIDE RECORDS SUMMARY | 2024-11-17 11:24 | XMS_ITS | Encounter Summary ---
Author Organization [employer] Address [address] [place] [address] [address] [place] [address] Care Team Providers Care Slab Depiler Operator Name Role Phone Ana Laura Bo MD Primary Care Provide r Reason for Visit * Reason Onset Date Comments Medication Question 06/16/2024 Encounter Details Date Type Department Care Team ([facility] st Contact Info) Description 06/16/2024 Telephone [facility] MEDICINE [address] [place], [place] [phone] Ana Laura Bo MD [address] [place], [place] [phone] Medication Question Social History Tobacco Use Types Packs/Day Years [...] encounter Miscellaneous Notes * Telephone Encounter - Ariel Gulshan - 06/16/2024 10:22 AM EDT Tc from pt requesting albuterol solution for nebulizer machine. Pt stated she was advised by pharmacy to request medication but television writer does not see script on med list. If any questions you can contact pt at [phone]. (Ghanaian Speaker) documented in this encounter Plan of Treatment Not on file documented as of this encounter Visit Diagnoses Not on filedocumented in this encounter Additional Health Concerns Assessment Noted Time PHQ-9 Depression Total Score: 0 03/23/20 23 11:05 AM EDT documented as of this encounter Care Teams Slab Depiler Operator Relationship Specialty Start Date End Date Ana Laura Bo MD [address] [place] [address] PCP - General Family Medicine 06/19/18 documented as of this encounter
== END 2024-11-17 11:42 | disposition home or self-care (01) ==
PROVIDERS: PCP Internal Medicine; Visit Provider Advanced Practice Midwife
DX: Z01.419 Encounter for gynecological examination (general) (routine) without abnormal findings (principal); B37.31 Acute candidiasis of vulva and vagina; Z98.51 Tubal ligation status; E66.9 Obesity, unspecified; Z87.42 Personal history of other diseases of the female genital tract
CPT/HCPCS: 99396; 99459

== ENCOUNTER 2024-11-17 10:27 | Outpatient (REF) | payer OTHER, MEDICAID, SELFPAY ==
--- OUTSIDE RECORDS SUMMARY | 2024-11-17 12:55 | XMS_ITS | Encounter Summary ---
Author Organization [employer] Address [address] [place] [address] [address] [place] [address] Care Team Providers Care Senior Talent Management Consultant Name Role Phone Ana Laura Bo MD [...] as of this encounter Plan of Treatment Upcoming Encounters Date Type Department Care Team (Late st Contact Info) Description 01/02/2025 11:15 AM EDT Office Visit [facility] MEDICINE [address] [place] [address] Ana Laura Bo MD [address] [place], [place] [phone] documented as of this encounter Visit Diagnoses Not on filedocumented in this encounter Additional Health Concerns Assessment Noted Time PHQ-9 Depression Total Score: 0 03/23/20 23 11:05 AM EDT documented as of this encounter Care Teams Senior Talent Management Consultant Relationship Specialty Start Date End Date Ana Laura Bo MD [address] [place] [address] [phone] PCP - General Family Medicine 06/19/18 documented as of this encounter
--- OUTSIDE RECORDS SUMMARY | 2024-11-17 12:55 | XMS_ITS | Encounter Summary ---
Author Organization [employer] Address [address] [place] [address] 7 [place] [address] Care Team Providers Care License Distributor Name Role Phone Ana Laura Bo MD Primary Care Provide r Reason for Visit * Reason Comments Vaginal Itching Encounter Details Date Type Department Care Team ([facility] st Contact Info) Description 10/25/2024 12:00 PM EST Office Visit [facility] [address] [place] [address] [phone] Ananth Saleem MD [address] [place], [place] [phone] Vaginal candidiasis (Primary Dx); Infectious otitis externa, [...] 7 nights Infectious otitis externa, bilateral - tvqslhhe-usfsivwuf-qdeshprfsyzdam (Cortisporin) otic solution; Administer 3 drops into each ear 3times daily for 7 days. Patient presents to [facility] with bilateral OE and vaginal [...] insurance Prefers to have Rx sent to [facility] pharmacy Indications for UC/ER use reviewed Advised to contact the clinic if persistent or worsening symptoms documented in this encounter Plan of Treatment Upcoming Encounters Date Type Department Care Team (Late st Contact Info) Description 01/02/2025 11:15 AM EDT Office Visit [facility] [address] [place] [address] Ana Laura Bo MD [address] [place] [address] documented as of this encounter Procedures Procedure Name Priority Date/Time Associated Diagnosis Comments BACTERIAL VAGINOSIS PANEL Routine 10/25/2024 12:03 PM EST Vaginal candidiasis CHLAMYDIA/N. GONORRHOEAE RNA, TMA, UROGENITAL Routine 10/25/2024 12:03 PM EST Vaginal candidiasis documented in this encounter Results * Chlamydia/N. Gonorrhoeae RNA, TMA, Urogenitial (10/25/2024 12:03 PM EST) CT PCR NOT DETECTED Not Detect. [facility] Comment:A not detected test result [...] psychologicalconsequences. NG PCR NOT DETECTED Not Detect. [facility] Comment:A not detected test result [...] PM EST 10/25/2024 2:01 PM EST Narrative [facility] - 10/26/2024 12:15 PM EST Vaginal us Ananth Saleem MD LAB MICROBIOLOGY - GENERAL ORDER NATALI Final Result [facility] [address] [place] [phone] * Bacterial Vaginosis Panel (10/25/2024 12:03 PM EST) TRICHOMONAS VAGINALIS DETECTION BY PCR NOT DETECTED Not Detect [facility] BACTERIAL VAGINOSIS DETECTION BY PCR NEGATIVE Negative [facility] Comment:The BV organism targ ets [...] DETECTION BY PCR NOT DETECTED Not Detect [facility] Gayla glab krusei PCR NOT DETECTED Not Detect [facility] Swab Vaginal structure / Unknown 10/25/2024 12:03 PM EST 10/25/2024 2:01 PM EST us Ananth Saleem MD LAB MICROBIOLOGY - GENERAL ORDER NATALI Final Result [facility] [address] [place] [address] [phone] documented in this encounter Visit Diagnoses Diagnosis Vaginal candidiasis- Primary Candidiasis of vulva and vagina Infectious otitis externa, bilateral documented in this encounter Additional Health Concerns Assessment Noted Time PHQ-9 Depression Total Score: 0 03/23/20 23 11:05 AM EDT documented as of this encounter Care Teams License Distributor Relationship Specialty Start Date End Date Ana Laura Bo MD [address] [place] [phone] PCP - General Family Medicine 06/19/18 documented as of this encounter
--- OUTSIDE RECORDS SUMMARY | 2024-11-17 12:55 | XMS_ITS | Encounter Summary ---
Author Organization [employer] Address [address] [place] [address] 7 [place] [address] Care Team Providers Care Road Freight Conductor Name Role Phone Ana Laura Bo MD Primary Care Provide r Reason for Visit * Reason Onset Date Comments Referral 10/31/2024 Encounter Details Date Type Department Care Team ([facility] st Contact Info) Description 10/31/2024 Telephone [facility] [address] [place], [place] [phone] Dayan Carlson MA Referral Social History Tobacco [...] Description 01/02/2025 11:15 AM EDT Office Visit [facility] [address] [place] [phone] Ana Laura Bo MD [address] [place] [phone] documented as of this encounter Visit Diagnoses Not on filedocumented in this encounter Additional Health Concerns Assessment Noted Time PHQ-9 Depression Total Score: 0 03/23/20 23 11:05 AM EDT documented as of this encounter Care Teams Road Freight Conductor Relationship Specialty Start Date End Date Ana Laura Bo MD [address] [place] [phone] PCP - General Family Medicine 06/19/18 documented as of this encounter
--- OUTSIDE RECORDS SUMMARY | 2024-11-17 12:56 | XMS_ITS | Clinical Summary ---
Author Organization [employer] Address [address] [place] [address] 7t [place] [address] Care Team Providers Care Government Affairs Researcher Name Role Phone Ana Laura Bo MD [...] Benadryl PRN epipen use it if needed central melt specialist referral Degeneration of cervical intervertebral disc [...] Type Department Care Team Description 10/31/2024 Telephone [facility] [address] [place] [phone] Dayan Carlson MA Referral 10/25/2024 12:00 PM EST Office Visit [facility] [address] [place] [phone] Ananth Saleem MD Vaginal candidiasis (Primary Dx); Infectious otitis externa, bilateral 10/25/2024 Travel 10/14/2024 11:00 AM EST Office Visit [facility] [address] [place] [phone] Camden Haley MD Acute otitis externa of left ear, unspecified type (Primary Dx) 10/10/2024 11:20 AM EST Office Visit [facility] [address] [place] [phone] Ana Laura Bo MD Right lumbar radiculopathy (Primary Dx) 08/26/2024 3:45 PM EST Office Visit [facility] [address] [place] [address] Jaclyn Becerril NP Right lumbar radiculopathy (Primary Dx) 08/26/2024 Travel 08/21/2024 Telephone [facility] [address] [place], [place] [phone] Mildred Alfaro MA chart prep 08/18/2024 Telephone [facility] [address] [place], [place] [phone] Camden Haley MD from Last 3 Months [...] 10/25/2024 11:09 AM EST Plan of Treatment Upcoming Encounters Date Type Department Care Team (Late st Contact Info) Description 01/02/2025 11:15 AM EDT Office Visit [facility] [address] [place] [address] Ana Laura Bo MD [address] [place] [address] Health Maintenance Due Date Last Done Comments [...] DETECTION BY PCR NOT DETECTED Not Detect [facility] BACTERIAL VAGINOSIS DETECTION BY PCR NEGATIVE Negative [facility] Comment:The BV organism targ ets [...] DETECTION BY PCR NOT DETECTED Not Detect [facility] Lynda glab krusei PCR NOT DETECTED Not Detect [facility] Swab Vaginal structure / Unknown 10/25/2024 12:03 PM EST 10/25/2024 2:01 PM EST us Ananth Saleem MD LAB MICROBIOLOGY - GENERAL ORDER NATALI Final Result [facility] [address] [place] [address] [phone] * Chlamydia/N. Gonorrhoeae RNA, TMA, Urogenitial (10/25/2024 12:03 PM EST) CT PCR NOT DETECTED Not Detect. [facility] Comment:A not detected test result [...] psychologicalconsequences. NG PCR NOT DETECTED Not Detect. [facility] Comment:A not detected test result [...] PM EST 10/25/2024 2:01 PM EST Narrative [facility] - 10/26/2024 12:15 PM EST Vaginal us Ananth Saleem MD LAB MICROBIOLOGY - GENERAL ORDER NATALI Final Result [facility] [address] [place] [address] [phone] * MR Lumbar Spine w/o Contrast (09/12/2024 4:45 PM EST) Anatomical Region Laterality Modality Spine, L-spine Magnetic Resonan ce 09/12/2024 4:45 PM EST Narrative 10/23/2024 12:04 PM EST ? [facility] ?[address] ?[place] [address] ? Magnetic Resonance Report ? Signed ? Patient: Vivian Francisco ?MR#: [id number] ?? 7 ? : 1970 ?Acct:[id number] ? Age/Sex: 54 / F ?ADM Date: 09/12/24 ? Loc: HO.MRI ? Attending Dr: Jaclyn Becerril RETAIL SHIFT MANAGER ? Ordering Physician: Jaclyn Becerril NP ?? Date of Service: 09/12/24 ?? Procedure(s): MR lumbar spine wo con ?? Accession Number(s): [id number] ? cc: Ana Laura Bo MD; Jaclyn [...] DD/ 1645 ? TD/TT: 09/12/24 1715 ? Safety And Skill Based Pay Manager: JAMES ? Procedure Note Donotuseinterpreter, Image - 10/23/2024 [place] [address] Magnetic Resonance Report Signed Patient: Vivian FranciscoMR#: [id number] 7 : 1970Acct:[id number] Age/Sex: 54 / FADM Date: 09/12/24 Loc: HO.MRI Attending Dr: Jaclyn Becerril RETAIL SHIFT MANAGER Ordering Physician: Jaclyn Becerril NP Date of Service: 09/12/24 Procedure(s): MR lumbar spine wo con Accession Number(s): [id number] cc: Ana Laura oB MD; Jaclyn Becerril RETAIL SHIFT MANAGER EXAMINATION: MR LUMBAR SPINE WITHOUT CONTRAST CLINICAL [...] by: Orlando Muniz DO 10/23/2024 12:01 PM [facility] Dictated By: Camden Muniz DO Signed By: <Electronically signed by Camden Muniz DO in OV> 10/23/24 1201 DD/ 1645 TD/TT: 09/12/24 1715 Safety And Skill Based Pay Manager: JAMES Jaclyn Becerril NP IMG MRI PROCEDURES Final Result * BI Mammogram Screening Tomosynthesis Bilateral (07/18/2024 3:25 PM EDT) Anatomical Region Laterality Modality Breast Bilateral Mammography 07/18/2024 3:25 PM EDT Narrative 07/31/2024 9:45 PM EDT ? [facility] ? [address] ?[place] [address] ? Mammography Report ? Signed ? Patient: Nolan,Vivian ?MR#: [id number] ?? 7 ? : 1970 ?Acct:[id number] ? Age/Sex: 54 / F ?ADM Date: 07/18/24 ? Loc: HO.MAMMO ? Attending Dr: Ana Laura Rodas MD ? Ordering Physician: Ana Laura Bo MD ?Results: ?? 1Negative ? Date of Service: 07/18/24 ?Follow Up: 1 Year From Orig ?? inal Mammogram ? Procedure(s): MM tomosynthesis screening BI ?? Accession Number(s): [id number] ? cc: Ana Laura Bo MD ? [...] ??Erma Mendieta DO ??07/31/2024 09:42 PM EDT ? Dictated By: ?Erma Mendieta DO ? Signed By: ?<Electronically signed by Erma Mendieta, DO in OV> ? 07/31/242141 ? DD/ 1525 ? TD/TT: 07/18/24 1534 ? Safety And Skill Based Pay Manager: ? Procedure Note Naomi, Image - 07/31/2024 [facility] [address] [place] [address] Mammography Report Signed Patient: Vivian FranciscoMR#: [id number] 7 : 1970Acct:[id number] Age/Sex: 54 / FADM Date: 07/18/24 Loc: HO.MAMMO Attending Dr: Ana Laura Rodas MD Ordering Physician: Ana Laura Bo MDResults: 1Negative Date of Service: 07/18/24Follow Up: 1 Year From Orig inal Mammogram Procedure(s): MM tomosynthesis screening BI Accession Number(s): [id number] cc: Ana Laura Bo MD EXAMINATION: MM [...] signed by Erma Mendieta DO in OV> 07/31/242 DD/ 1525 TD/TT: 07/18/24 1534 Safety And Skill Based Pay Manager: us Ana Laura Rodas MD IMG BI PROCEDURES Mikey campos Result - Final * Hemoglobin A1c (12/27/2023 8:29 AM EDT) Hemoglobin A1c 5.8 <6.0 % [facility] Comment:Hemoglobin A1C Refer ence Range Adults: 4.8 - 6.0 % Non diabetic: < 6.0 % Goal: < 7.0 %Additional Action Suggested: > 8.0 %Note: Hemoglobin A1c results are invalid for patients with abnormal amounts of HbF. Blood transfusions may impact the HbA1c concentration in the patient sample. Estimated Average Glucose 120 mg/dL [facility] Comment:eAG = Estimated ave rage glucose which is %A1C expressed asaverage glucose, using the formula of the K0C-AwyumooHopmbvl Glucose study (ADAG), Diabetes Care, Vol.31,#8,May. 2007 Blood Venous blood specimen / Unknown 12/27/2023 8:29 AM EDT 12/27/2023 8:29 AM EDT us Ana Laura Rodas MD LAB BLOOD ORDERABLES Final Result [facility] [address] [place] [phone] * (ABNORMAL) Lipid Panel, Standard (12/27/2023 8:29 AM EDT) Triglycerides 71 <150 mg/dL [facility] Comment:Desirable Triglyceri de: less than 150 mg/dLBorderline High Triglyceride 150-199 mg/dLHigh Triglyceride: 200-499 mg/dLVery High Triglyceride: greater than or equal to 5OO mg/dL Cholesterol 200(H) <200 mg/dL [facility] Comment:Desirable Cholestero l: less than 200 mg/dLBorderline High Cholesterol: 200-239 mg/dLHigh Cholesterol: greater than 239 mg/dL LDL Cholesterol Calculated 143(H) <100 mg/dL [facility] Comment:Desirable LDL: less than 100 mg/dLNear Optimal/Above Optimal LDL: 110- 129 mg/dLBorderline High LDL: 130-159 mg/dLHigh LDL: 160-189 mg/dLVery High LDL: greater than or equal to 190 mg/dL HDL Cholesterol 43 >40 mg/dL [facility] Comment:Desirable HDL: great er than 40 mg/dL Note: This HDL assay may give artificially low results in patients with liver disease. Blood Venous blood specimen / Unknown 12/27/2023 8:29 AM EDT 12/27/2023 8:29 AM EDT us Ana Laura Rodas MD LAB BLOOD ORDERABLES Final Result [facility] [address] [place] [address] [phone] * (ABNORMAL) Hepatitis C Antibody (09/04/2022 12:14 PM EST) Hepatitis C Antibody Reactive(A) Nonreactive [facility] Comment:Presumptive evidence of antibodies to HCV. HIV AB/AG Nonreactive Nonreactive [facility] Comment: HIV-1 p24 Ag and/or HIV-1/HIV-2 [...] detection of this assay. ?? The [employer] HIV Ag/Ab Combo assay result and supplemental assay results should be interpreted in conjunction with the patient's clinical presentation, history and other laboratory results. ??If the results are inconsistent with clinical evidence, additional testing is suggested to confirm the result. Hepatitis B Surface Antigen Negative Negative [facility] 09/04/2022 12:1 4 PM EST Lexi Miner HISTORICAL/NON ORDERABLE LABS Fi nal Result [facility] * HPV mRNA E6/E7 w/Reflex to HPV Genotypes 16, 18/45 (09/04/2022 11:33 AM EST) HPV nRNA E6/E7 Not Detected Not Detected [facility] Comment:Methodology: Transcr iption-Mediated AmplificationThis assay detects E6/E7 viral messenger RNA (mRNA) from 14high-risk HPV types (16,18,31,33,35,39,45,51,52,56,58,59,66,68).Cervical sources are required for HPV testing.If a vaginal source from a patient who has had atotal hysterectomy with removal of cervix wassubmitted, please contact the testing laboratoryfor alternative testing options.For additional information, please refer tohttp://education.[employer]/faq/RVX184c8(This link if provided for information/educational purposes only.)THIS TEST WAS PERFORMED AT:[facility] [place] [address] [address],[place] [address]FQQPMRD NUNN MD HPV mRNA E6/E7 [facility] HPV 16 RNA [facility] HPV 18/45 RNA [facility] 09/04/2022 11:3 3 AM EST 09/04/2022 12:00 PM EST [facility] External Provider LAB CYT OLOGY ORDERABLES Final Result [facility] [address] [place] [address] [phone] * Pap Smear (09/04/2022 11:33 AM EST) 09/04/2022 11:3 3 AM EST 09/04/2022 12:00 PM EST Narrative [facility] - 09/29/2022 1:29 PM EST ----- ------- Name: Vivian Francisco ?Age/Sex: 52/F ? : 1970 Unit#: [id number] ?? Attend Dr: Lexi Pitts CNM ?Re09/04/22 ?Status: DEP REF ? Location: HO.LNP ?Disch: ? ----- ------- SPEC : [id number] ?RECD: 09/04/22-1199 ? STATUS: ??SOUT ? REQ NUM: [id number] ? EVELIA: 09/04/22 ? SUBM DR: GisselleLexi CNM ? ENTERED: ??09/05/22 ?SP TYPE: Pap Smr ?OTHR DR: ? ORDERED: ??Pap Smear ? Interpretation ?? [...] 66, 68) ? HPV testing performed by [facility], [place], [place]. ??See reference laboratory ?? portion of the EMR for entire report. ?Clinical Information LMP: No menses Previous PAP test: 03/12/18, WNL ? Material Received ?? ThinPrep-Cervical ----- ------- Signed (signature on file) Aline Vital 09/29/22 1329 ? ----- ------- ? END OF REPORT ? us [facility] External Provider LAB [facility] ORDERABLES Final Result [facility] [address] [place] [address] [phone] from Last 3 Months or Most Recently Relevant to Health Maintenance Insurance [facility] [employer] COMMERCIAL MD [place] [id number] Care Teams Government Affairs Researcher Relationship Specialty Start Date End Date Ana Laura Bo MD [address] [place] [phone] PCP - General Family Medicine 06/19/18
--- OUTSIDE RECORDS SUMMARY | 2024-11-17 12:56 | XMS_ITS | Encounter Summary ---
Author Organization [employer] Address [address] [place] [address] 7 [place] [address] Care Team Providers Care Tubing Drier Name Role Phone Ana Laura Bo MD Primary Care Provide r Reason for Visit * Reason Onset Date Comments Medication Question 06/16/2024 Encounter Details Date Type Department Care Team ([facility] st Contact Info) Description 06/16/2024 Telephone [facility] [address] [place], [place] [phone] Ana Laura Bo MD [address] [place], [place] [phone] Medication Question Social History Tobacco Use Types [...] Miscellaneous Notes * Telephone Encounter - Ariel Gaffney - 06/16/2024 10:22 AM EDT Tc from pt requesting albuterol solution for nebulizer machine. Pt stated she was advised by pharmacy to request medication but account underwriter does not see script on med list. If any questions you can contact pt at [phone]. (Iranian Speaker) documented in this encounter Plan of Treatment Upcoming Encounters Date Type Department Care Team (Late st Contact Info) Description 01/02/2025 11:15 AM EDT Office Visit [facility] [address] [place] [address] Ana Laura Bo MD [address] [place] [address] documented as of this encounter Visit Diagnoses Not on filedocumented in this encounter Additional Health Concerns Assessment Noted Time PHQ-9 Depression Total Score: 0 03/23/20 23 11:05 AM EDT documented as of this encounter Care Teams Tubing Drier Relationship Specialty Start Date End Date Ana Laura Bo MD [address] [place], [place] [phone] PCP - General Family Medicine 06/19/18 documented as of this encounter
--- OUTSIDE RECORDS SUMMARY | 2024-11-17 12:56 | XMS_ITS | Encounter Summary ---
Author Organization [employer] Address [address] [place] [address] 7 [place] [address] Care Team Providers Care Rectifying Attendant Name Role Phone Ana Laura Bo MD Primary Care Provide r Reason for Visit * Reason Comments Med Refill Encounter Details Date Type Department Care Team (Late st Contact Info) Description 06/16/2024 Refill [facility] [address] [place], [place] [phone] Ana Laura Bo MD [address] [place], [place] [phone] Social History Tobacco Use Types Packs/Day Years [...] Description 01/02/2025 11:15 AM EDT Office Visit [facility] [address] [place] [address] Ana Laura Bo MD [address] [place] [address] documented as of this encounter Visit Diagnoses Not on filedocumented in this encounter Additional Health Concerns Assessment Noted Time PHQ-9 Depression Total Score: 0 03/23/20 23 11:05 AM EDT documented as of this encounter Care Teams Rectifying Attendant Relationship Specialty Start Date End Date Ana Laura Bo MD [address] [place], [place] [phone] PCP - General Family Medicine 06/19/18 documented as of this encounter
[2024-11-18 05:59] LABS: CT PCR NOT DETECTED (Not Detect.); NG PCR NOT DETECTED (Not Detect.)
[2024-11-18 13:13] LABS: Bacterial Vaginosis PCR POSITIVE (Negative); Candida Group PCR NOT DETECTED (Not Detect); Candida glab krusei PCR NOT DETECTED (Not Detect); Trichomonas vaginalis PCR NOT DETECTED (Not Detect)
== END 2024-11-17 10:28 | disposition home or self-care (01) ==
LOC: HO.LAB 10:27
PROVIDERS: PCP Internal Medicine; Visit Provider Advanced Practice Midwife
DX: N89.8 Other specified noninflammatory disorders of vagina (principal); Z20.2 Contact with and (suspected) exposure to infections with a predominantly sexual mode of transmission
CPT/HCPCS: 81515; 87491; 87591

== ENCOUNTER 2025-01-02 13:59 | Outpatient (REF) | payer OTHER, MEDICAID, SELFPAY ==
[2025-01-02 16:21] LABS: MANUAL DIFF FLAG NO
[2025-01-02 16:29] LABS: Basophils Absolute Auto 0.1 X10*3/uL (0.0-0.2); Basophils Percent Auto 0.6 % (0-2); Eosinophils Absolute Auto 0.1 X10*3/uL (0.0-0.4); Hematocrit 42.5 % (37.0-47.0); Hemoglobin 14.7 g/dl (12.0-16.0); Imm Gran Abs Auto 0.04 X10*3/uL (0.00-0.03); Imm Gran Pct Auto 0.5 % (0.0-0.4); Lymphocytes Absolute Auto 3.1 X10*3/uL (1.2-4.9); Lymphocytes Percent Auto 34.9 % (20-40); Mean Corpuscular HGB Conc 34.6 g/dl (31.0-35.0); Mean Corpuscular Hemoglobin 30.9 pg (27.0-33.0); Mean Corpuscular Volume 89.3 fL (80.0-98.0); Mean Platelet Volume 8.9 fL (9.4-12.3); Monocytes Absolute Auto 0.6 X10*3/uL (0.1-1.2); Monocytes Percent Auto 7.1 % (2-11); Neutrophils Absolute Auto 4.9 x10*3/uL (2.0-8.3); Neutrophils Percent Auto 55.9 % (45-73); Platelet Count 260 X10*3/uL (160-400); Red Blood Count 4.76 X10*6/uL (4.20-5.50); White Blood Count 8.8 X10*3/uL (4.8-10.8)
[2025-01-02 16:54] LABS: Estimated Average Glucose 111 mg/dL; Hemoglobin A1c % 5.5 % (<6.0); Total Hemoglobin (HGBA1C) 3847.0276 umol/L
[2025-01-02 17:01] LABS: Alanine Aminotransferase 18 U/L (0-31); Anion Gap 11 (12-20); Aspartate Amino Transferase 24 U/L (5-31); Bilirubin Total 0.4 mg/dL (0.0-1.0); Blood Urea Nitrogen 15 mg/dL (9-16); Calcium 9.2 mg/dL (8.4-10.2); Carbon Dioxide 25 mmol/L (22-29); Chloride 108 mmol/L (96-108); Cholesterol 195 mg/dL (<200); Estimated Glomerular Filt Rate > 60; Glucose Random 75 mg/dL (60-115); HDL Cholesterol 46 mg/dL (>40); LDL Cholesterol Calculated 136 mg/dL (<100); Potassium 3.6 mmol/L (3.3-5.1); Sodium 140 mmol/L (135-145); Total Protein 7.2 g/dL (6.5-8.0); Triglycerides 68 mg/dL (<150)
[2025-01-02 17:21] LABS: Alkaline Phosphatase 73 U/L (39-117)
[2025-01-02 17:25] LABS: TSH reflex Free T4 1.27 uIU/mL (0.32-4.0); Vitamin D 25-OH Total 32.2 ng/mL (>30)
[2025-01-03 03:29] LABS: HIV AB/AG Nonreactive (Nonreactive); HIV Num 1 0.06 S/CO (0.00-0.99); ~HepC Num1 15.88 S/CO (0.00-0.79); ~Hepatitis C Antibody Reactive (Nonreactive)
[2025-01-07 16:59] LABS: HCV Log PCR <1.18 NOT DETECTED Log IU/mL (NOT DETECTED); HepC Viral Load <15 NOT DETECTED IU/mL (NOT DETECTED)
== END 2025-01-02 14:00 | disposition home or self-care (01) ==
LOC: HO.HHCL 13:59
PROVIDERS: Visit Provider Internal Medicine
DX: R53.82 Chronic fatigue, unspecified (principal); Z68.32 Body mass index [BMI] 32.0-32.9, adult; E66.09 Other obesity due to excess calories; E66.811 Obesity, class 1; Z13.1 Encounter for screening for diabetes mellitus
CPT/HCPCS: 36415; 80053; 80061; 82306; 83036; 84443; 85025; 86803; 87389; 87522

== ENCOUNTER 2025-07-31 09:48 | Outpatient (REF) | payer OTHER, MEDICAID, SELFPAY ==
--- NOTE | ~2025-07-31 | MM_ITS ---
EXAMINATION: MM SCREENING DIGITAL BREAST TOMOSYNTHESIS, BILATERAL CLINICAL INFORMATION: Screening. Asymptomatic. COMPARISON: Mammography: Comparison is made with available priors TECHNIQUE: Digital breast mammography with tomosynthesis is performed in both the craniocaudal and mediolateral oblique views along with computer-aided detection (CAD). FINDINGS: There are scattered areas of fibroglandular density. There are no significant masses, abnormal calcifications, or other abnormalities. MM/MM tomosynthesis screening BI IMPRESSION: No mammographic evidence of malignancy. ASSESSMENT: BI-RADS Category 1: Negative RECOMMENDATION: Routine annual mammography screening. 1 year F/U This examination should not preclude the clinical evaluation of a suspicious palpable abnormality. This patient's information was entered into a reminder system with a target due date for their next mammogram. Electronically signed by: Erma Mendieta DO 08/04/2025 12:28 PM EDDionne
--- OUTSIDE RECORDS SUMMARY | 2025-07-31 11:05 | XMS_ITS | Encounter Summary ---
Author Organization [employer] Address [address] [place] [address] 7 [place] [address] Care Team Providers Care Ad Writer Name Role Phone Ana Laura Bo MD Primary Care Provide r Reason for Visit * Reason Comments Med Refill Encounter Details Date Type Department Care Team (Late st Contact Info) Description 06/16/2024 Refill [facility] [address] [place], [place] [phone] Ana Laura Bo MD [address] [place], [place] [phone] Social History Tobacco Use Types Packs/Day Years [...] documented as of this encounter Care Teams Ad Writer Relationship Specialty Start Date End Date Ana Laura Bo MD [address] [place] [phone] PCP - General Family Medicine 06/19/18 documented as of this encounter
--- OUTSIDE RECORDS SUMMARY | 2025-07-31 11:05 | XMS_ITS | Clinical Summary ---
Author Organization [employer] Address [address] [place] [address] 7[address] [place] [address] Care Team Providers Care Phlebotomy Services Technician Name Role Phone Ana Laura Bo MD Primary Care Provide r Allergies Active Allergy Reactions Criticality Noted Date Comments Diclofenac 10/25/2024 Medications albuterol (2.5 MG/3ML) 0.083% nebulizer solutionIndicati ons:Wheezing Take 3 mL (2.5 mg) by nebulization every 6 (six) hours if needed for wheezing or shortness of breath. 75 mL Active albuterol (Ventolin HFA) 108 (90 Base) MCG/ACT inhaler INHALE 2 PUFFS BY MOUTH EVERY 6 HOURS IF NEEDED FOR WHEEZING 18 g Active topiramate (Topamax) 100 MG tablet Take [...] for moderate pain or fever. 40 tablet Active lidocaine (Lidoderm) 5 % patch Apply 1 patch topically Once per day. Remove & discard patch within 12 hours or as directed by MD. May use 2 patches at the same time. 60 patch 2 024 2024 Active ibuprofen 400 MG tablet Take 1 tablet (400 mg) by mouth every 6 (six) hours if needed for moderate pain or fever for up to 30 doses. 30 tablet Active Blood Pressure kit 1 each 2 times daily. 1 kit 024 2024 Active amoxicillin-clav ulanate (Augmentin) 875-125 MG tablet Take 1 tablet by mouth 2 times daily. 14 tablet 025 Active clotrimazole (Lotrimin) 1 % vaginal creamIndications :Vulvovaginal Candidiasis Insert one applicator per vagina at bedtime for 7 nights 45 g 025 Active methocarbamol (Robaxin) 750 MG tabletIndication s:Right lumbar radiculopathy Take 1 tablet (750 mg) by mouth 4 times daily for 10 days. 40 tablet 025 Active topiramate (Topamax) 25 MG tabletIndication s:Class 1 obesity due to excess calories with serious comorbidity and body mass index (BMI) of 32.0 to 32.9 in adult Take 1 tablet (25 mg) by mouth Once per day. 30 tablet 1 025 2025 Active clotrimazole-bet amethasone (Lotrisone) creamIndications :Tinea pedis APPLY TOPICALLY TO AFFECTED AREA(S) TWICE DAILY 45 g 1 025 Active Magnesium 400 MG capsuleIndicatio ns:Chronic migraine without aura without status migrainosus, not intractable Take 400 mg by mouth Once per day. 30 capsule 2 025 Active phentermine 37.5 MG capsuleIndicatio ns:Class 1 obesity due to excess calories with serious comorbidity and body mass index (BMI) of 32.0 to 32.9 in adult Take 1 capsule (37.5 mg) by mouth before breakfast. 30 capsule 2 025 Active lidocaine (Lidoderm) 5 % patchIndications :Right lumbar radiculopathy APPLY 1 PATCH TOPICALLY TO SKIN, LEAVE ON FOR 12 HOURS AND OFF FOR 12 HOURS DIRECTED 30 patch 1 025 Active lidocaine (Lidoderm) 5 % patchIndications :Right lumbar radiculopathy Apply 1 patch topically Once per day. Remove & discard patch within 12 hours or as directed by . 30 patch 1 025 2024 Discontinued Active Problems Problem Noted Date Diagnosed Date Chronic right hip pain 05/11/2025 Fibromyalgia 05/11/2025 Assessment & Plan (05/11/2025 4:56 PM EDT): Patient was educated about multidisciplinary approach for her condition, it was advise cardiovascular exercise, maintain hydration, treat anxiety/depression and take medications as directed Information provided Cramps of left lower extremity 05/11/2025 Acute otitis media 05/11/2025 Class 1 obesity due to exces s calories with serious comorbidity and body mass index (BMI) of 32.0 to 32.9 in adult 01/02/2025 Assessment & Plan (05/11/2025 4:55 PM EDT): Today extensive discussion was done about life style modifications I advise healthy diet (low calorie) and cardiovascular exercise I will go up on phentermine dose to 37.5mg Assessment & Plan (03/05/2025 10:39 AM EDT): Extensive counseling about healthy diet and exercise on today I prescribed again phentermine 15 mg daily together with topiramate 25 mg daily patient is aware of side effects Plan is to follow-up with her in about 4 to 6 weeks to weight her and reevaluate her Assessment & Plan (01/02/2025 3:13 PM EDT): Extensive counseling about healthy diet and exercise on today I will start her on phentermine 15 mg daily, side effects of this medication were discussed, I let her know it may cause palpitations and, anxiety and dry mouth I also prescribed for her topiramate 25 mg once daily side effects also discussed with her including somnolence I will follow-up with her in 4 weeks Fatigue 01/02/2025 Assessment & Plan (01/02/2025 3:13 PM EDT): Labs were ordered today results will going to be reviewed with patient Tinea pedis of left foot 01/02/2025 Assessment & Plan (01/02/2025 3:12 PM EDT): Clotrimazole/betamethasone cream apply twice daily no more than 2 weeks Right lumbar radiculopathy 08/26/2024 Assessment & Plan (01/02/2025 3:11 PM EDT): I advised to apply heat on affected area I will refill for her Robaxin-750 milligrams 4 times a day as needed I refilled also ibuprofen 800 mg as needed Assessment & Plan (08/26/2024 6:03 PM EST): Persistent pain and radiculopathy despite PT, will order mri and refer to [facility] Contusion, scapular region 03/07/2024 [...] Benadryl PRN epipen use it if needed erosion control specialist referral Degeneration of cervical intervertebral disc [...] Obesity 05/14/2015 Recurrent major depressive episodes, moderate (C MS/HCC) 05/14/2015 Vitamin D deficiency 08/26/2013 Iron deficiency anemia 07/26/2012 Migraine 05/03/2012 Assessment & Plan (05/11/2025 4:57 PM EDT): I advise to avoid migraine triggers like red wine, chocolate, cheese, strong perfumes I added today magnedium supplement C/w topiromate 25mg at bed time Assessment & Plan (01/15/2024 12:30 PM EDT): [...] Fioricet for brake through headaches Asthma 04/02/2012 Assessment & Plan (01/02/2025 3:11 PM EDT): Controlled continue with same interventions Carpal tunnel syndrome 04/02/2012 Tobacco dependence syndrome 04/02/2012 Encounters Date Type Department Care Team Description 07/03/2025 Refill [facility] [address] [place] [address] Ana Laura Bo MD Right lumbar radiculopathy 05/11/2025 11:30 AM EDT Office Visit [facility] [address] [place], [place] [phone] Ana Laura Bo MD Chronic right hip pain (Primary Dx); Fibromyalgia; Acute otitis media, unspecified otitis media type; Cramps of left lower extremity; Dietary counseling; Exercise counseling; Chronic migraine without aura without status migrainosus, not intractable; Class 1 obesity due to excess calories with serious comorbidity and body mass index (BMI) of 32.0 to 32.9 in adult 05/11/2025 Travel 05/08/2025 Telephone [facility] [address] [place], [place] [phone] Ana Laura Bo MD chart prep 05/04/2025 Patient Outreach [facility] [address] [place], [place] [phone] Ana Laura Bo MD Pre-visit Planning (SDOH was already completed) from Last 3 Months Immunizations Immunization Administration Dates Next Due Hep A, Adult [...] Date Recorded Patient Health Questionnaire-9 Score 0 05/11/2025 Patient Health Questionnaire-9 Score 0 05/11/2025 Last PHQ-9: Questionnaire Data Not on file 0 05/11/2025 Housing Stability Answer Date Recorded What is your housing situation today? I have lenoratrell michael 12/23/[address] you li ve. Do you have problems with any of the following? None of the above 12/23/2024 Food Insecurity Answer Date Recorded Within the past 12 months, y ou worried that your food would run out before you got money to buy more: Never True 12/23/2024 Within the past 12 months,th e food you bought just didn't last and you didn't have enough money to get more: Never True Transportation Answer Date Recorded In the past 12 months, has l ack of transportation kept you from medical appts, meetings, work or from getting things needed for daily living? No 12/23/2024 Utilities Answer Date Recorded In the past 12 months, has t he electric, gas, oil or water company threatened to shut off services in your home? No 12/23/2024 Depression Answer Date Recorded Patient Health Questionnaire-2 Score 0 05/11/2025 Internet Access Answer Date Recorded Internet Access Q1 Yes 12/23/2024 Internet Access Q2 Not on file 12/23/2024 Comments No Sex and Gender Information Value Date Recorded Sex Assigned at Female 08/07/2022 10:15 AM EDT Legal Sex Female 10:15 AM EDT Gender Identity Female 08/07/2022 10:15 AM EDT Sexual Orientation Choose not to disclose 2021 10:15 AM EDT Last Filed Vital Signs Vital Sign Reading Time Taken Comments Blood Pressure 119/80 05/11/2025 12:02 PM EDT Pulse 78 05/11/2025 12:02 PM EDT Temperature 36.7 C (98 F) 05/11/2025 12:02 PM EDT Respiratory Rate 20 05/11/2025 12:02 PM EDT Oxygen Saturation 99% 01/02/2025 11:33 AM EDT Inhaled Oxygen Concentration - - Weight 86.2 kg (190 lb) 05/11/2025 12:02 PM EDT Height 165.1 cm (5' 5 ) 05/11/2025 12:02 PM EDT Body Mass Index 31.62 05/11/2025 12:02 PM EDT Plan of Treatment Health Maintenance Due Date Last Done Comments CT Colonography 1972 FIT DNA/Cologuard 1972 FIT 1972 FOBT 1970 Sigmoidoscopy 1970 Pneumococcal Vaccine: 50+ Years (2 of 2 - PCV) 02/23/2010 02/23/2009 Zoster Vaccines (1 of 2) 2022 DTaP/Tdap/Td Vaccines (2 - Td or Tdap) 05/14/2025 05/14/2015, 08/01/2005 COVID-19 Vaccine ( - season) 2025 10/02/2023, 08/05/2021, 01/10/2021 Influenza Vaccine (#1) 2025 , 06/09/2023, 08/15/2022, Additional history exists Mammogram 07/18/2025 07/18/2024, 06/08, 10/22/2017 Pap Smear 09/04/2025 09/04/2022 SDOH Screening 12/23/2025 12/23/2024 Colonoscopy 12/29/2025 12/29/2022 Colorectal Cancer Screening 12/29/2025 Alcohol/Substance Use Screening 01/02/2026 01/02/2025 Depression Screening 05/11/2026 05/11/2025, 05/11/20 Disability Screening 05/11/2026 05/11/2025 Tobacco Screening 05/11/2026 05/11/2025 Cervical Cancer Screening 09/04/2027 HPV/Cotest 09/04/2027 09/04/2022, 03/11/2018 Lipid Panel 01/02/2030 01/02/2025, 12/27/2023 RSV Patients and Patients Aged 60 years or older (1 - 1-dose 75+ series) 2047 Hepatitis B Vaccines Completed 07/27/2006, 09/22/2005, 08/22/2005 Hepatitis A Vaccines Aged Out 01/14/2009 No long er eligible based on patient's age to complete this topic HIV Screening Completed 01/02/2025, 09/04/2022 Hepatitis C Screening Completed 01/02/2025 , 01/02/2025, 09/04/2022 HIB Vaccines Aged Out No longer eligi ble based on patient's age to complete this topic HPV Vaccines Aged Out No longer eligi ble based on patient's age to complete this topic IPV Vaccines Aged Out No longer eligi ble based on patient's age to complete this topic Meningococcal B Vaccine Aged Out No l onger eligible based on patient's age to complete [...] Procedure Name Priority Date/Time Associated Diagnosis Comments HEPATITIS C AB W/REFL TO HCV RNA, QN, PCR Routine 01/02/2025 2:02 PM EDT Chronic fatigue HIV 1/2 ANTIGEN/ANTIBODY, FOURTH GENERATION W/RFL Routine 01/02/2025 2:02 PM EDT Chronic fatigue LIPID PANEL, STANDARD Routine 01/02/2025 2:02 PM EDT Chronic fatigue BI MAMMOGRAM SCREENING TOMOSYNTHESIS BILATERAL Routine 07/18/2024 3:25 PM EDT HM COLONOSCOPY Routine 12/29/2022 10:01 AM EDT HPV MRNA E6/E7 REFLEX TO HPV 16, 18/45 Routine 09/04/2022 11:33 AM EST PAP SMEAR Routine 09/04/2022 11:33 AM EST from Last 3 Months or Most Recently Relevant to Health Maintenance Results * (ABNORMAL) Hepatitis C Antibody with Reflex to HCV, RNA, Quantitative, Real- Time PCR (01/02/2025 2:02 PM EDT) Hepatitis C Antibody Reactive( A) Nonreactive [facility] Comment:Presumptive evidence of antibodies to HCV. Blood Venous blood specimen / Unknown 01/02/2025 2:02 PM EDT 01/02/2025 4:18 PM EDT Ana Laura Rodas MD LAB BLOOD ORDERABLES Final Result Performing Organization Address City/[facility]/ZIP Co de Phone Number [facility] [address] [place] [phone] * HIV-1/2 Antigen and Antibodies, Fourth Generation, with Reflexes (01/02/2025 2:02 PM EDT) [facility] HIV AB/AG Nonreactive Nonreactive [facility] Comment:HIV-1 p24 Ag and/or HIV-1/HIV-2 Ab not detected.A test result that is nonreactive does not exclude thepossibility of exposure to or infection with HIV-1 and/orHIV-2. Nonreactive results in this assay for individualswith prior exposure to HIV-1 and/or HIV-2 may be due toantigen and antibody levels that are below the limit ofdetection of this assay.The [employer] HIV Ag/Ab Combo assay result andsupplemental assay results should be interpreted inconjunction with the patient's clinical presentation,history and other laboratory results. If the results areinconsistent with clinical evidence, additional testing issuggested to confirm the result. Blood Venous blood specimen / Unknown 01/02/2025 2:02 PM EDT 01/02/2025 4:18 PM EDT us Ana Laura Rodas MD LAB BLOOD ORDERABLES Final Result Performing Organization Address [facility] Co de Phone Number [facility] [address] [place] [phone] * (ABNORMAL) Lipid Panel, Standard (01/02/2025 2:02 PM EDT) Triglycerides 68 <150 mg/dL [facility] Comment:Desirable Triglyceri de: less than 150 mg/dLBorderline High Triglyceride 150-199 mg/dLHigh Triglyceride: 200-499 mg/dLVery High Triglyceride: greater than or equal to 5OO mg/dL Cholesterol 195 <200 mg/dL [facility] Comment:Desirable Cholestero l: less than 200 mg/dLBorderline High Cholesterol: 200-239 mg/dLHigh Cholesterol: greater than 239 mg/dL LDL Cholesterol Calculated 136(H) <100 mg/dL [facility] Comment:Desirable LDL: less than 100 mg/dLNear Optimal/Above Optimal LDL: 110- 129 mg/dLBorderline High LDL: 130-159 mg/dLHigh LDL: 160-189 mg/dLVery High LDL: greater than or equal to 190 mg/dL HDL Cholesterol 46 >40 mg/dL [facility] Comment:Desirable HDL: great er than 40 mg/dL Note: This HDL assay may give artificially low results in patients with liver disease. Blood Venous blood specimen / Unknown 01/02/2025 2:02 PM EDT 01/02/2025 4:18 PM EDT us Ana Laura Rodas MD LAB BLOOD ORDERABLES Final Result [facility] [address] [place] [phone] [phone] * BI Mammogram Screening Tomosynthesis Bilateral (07/18/2024 3:25 PM EDT) Anatomical Region Laterality Modality Breast Bilateral Mammography 07/18/2024 3:25 PM EDT Narrative 07/31/2024 9:45 PM EDT [facility] [address] [place] [address] [place] [address] Mammography Report Signed Patient: Vivian Francisco MR#: [id number] 7 : 1970 Acct:[id number] Age/Sex: 54 / F ADM Date: 07/18/24 Loc: HO.MAMMO Attending Dr: Ana Laura Rodas MD Ordering Physician: Ana Laura Bo MD Results: 1Negative Date of Service: 07/18/24 Follow Up: 1 Year From Orig inal Mammogram Procedure(s): MM tomosynthesis screening BI Accession Number(s): [id number] cc: Ana Laura Bo MD EXAMINATION: MM [...] Erma Mendieta DO 07/31/2024 09:42 PM EDT Dictated By: Erma Mendieta DO Signed By: <Electronically signed by Erma Mendieta DO in OV> 07/31/24 2142 DD/ 1525 TD/TT: 07/18/24 1534 Toll Patrolman: Procedure Note Donotuseinterpreter, Image - 07/31/2024 [facility] [address] [place] [address] Mammography Report Signed Patient: Vivian FranciscoMR#: [id number] 7 : 1970Acct:[id number] Age/Sex: 54 / FADM Date: 07/18/24 Loc: [facility] Attending Dr: Ana Laura Rodas MD Ordering Physician: Ana Laura Bo MDResults: 1Negative Date of Service: 10/11/24Follow Up: 1 Year From Orig inal Mammogram Procedure(s): MM tomosynthesis screening BI Accession Number(s): [id number] cc: Ana Laura Bo MD EXAMINATION: MM [...] Erma Mendieta DO 07/31/2024 09:42 PM EDT Dictated By: Erma Mendieta DO Signed By: <Electronically signed by Erma Mendieta DO in OV> 07/31/242 DD/ 1525 TD/TT: 07/18/24 1534 Toll Patrolman: us Ana Laura Rodas MD IMG BI PROCEDURES Mikey jc Result - Final * Hm Colonoscopy (12/29/2022 10:01 AM EDT) us Historical Provider HEALTH MAINTENANCE Final Result * HPV mRNA E6/E7 w/Reflex to HPV Genotypes 16, 18/45 (09/04/2022 11:33 AM EST) HPV nRNA E6/E7 Not Detected Not Detected [facility] Comment:Methodology: Transcr iption-Mediated AmplificationThis assay detects E6/E7 viral messenger RNA (mRNA) from 14high-risk HPV types (16,18,31,33,35,39,45,51,52,56,58,59,66,68).Cervical sources are required for HPV testing.If a vaginal source from a patient who has had atotal hysterectomy with removal of cervix wassubmitted, please contact the testing laboratoryfor alternative testing options.For additional information, please refer tohttp://education.Ampex/faq/QQA068j6(This link if provided for information/educational purposes only.)THIS TEST WAS PERFORMED AT:[facility] [address],[place] [phone] NUNN MD HPV mRNA E6/E7 TNP [facility] HPV 16 RNA TNP [facility] HPV 18/45 RNA [facility] 09/04/2022 11:3 3 AM EST 09/04/2022 12:00 PM EST [facility] External Provider LAB CYT OLOGY ORDERABLES Final Result Performing Organization Address City/State/[facility] Co de Phone Number [facility] [address] [place] [phone] * Pap Smear (09/04/2022 11:33 AM EST) 09/04/2022 11:3 3 AM EST 09/04/2022 12:00 PM EST Narrative [facility] - 09/29/2022 1:29 PM EST ----- ------- Name: Vivian Francisco Age/Sex: 52/F : 1970 Unit#: [id number] Attend Dr: Lexi Pitts CNM Re09/04/22 Status: DEP REF Location: [facility] Disch: ----- ------- SPEC : [id number] RECD: 09/04/22 STATUS: ALISHA NANCE NUM: [id number] EVELIA: 09/04/[address] [facility] [address]: GisselleLexi [facility] ENTERED: 09/05/22 SP TYPE: Pap Smr OTHR DR: ORDERED: Pap Smear Interpretation Satisfactory for evaluation. Negative for intraepithelial lesion or malignancy. Fungal organisms consistent with Lynda species. HPV mRNA E6/E7: NOT DETECTED This assay detects E6/E7 viral messenger RNA (mRNA) from 14 high-risk HPV types (16, 18, 31, 33, 35, 39, 45, 51, 52, 56, 58, 59, 66, 68) HPV testing performed by [facility], [place], [place]. See reference laboratory portion of the EMR for entire report. Clinical Information LMP: No menses Previous PAP test: 03/12/18, [facility] Material Received ThinPrep-Cervical ----- ------- Signed (signature on file) Aline Vital 09/29/22 1329 ----- ------- END OF REPORT [facility] External Provider LAB CYT OLALENY ORDERABLES Final Result [facility] [address] [place] [phone] [phone] from Last 3 Months or Most Recently Relevant to Health Maintenance Insurance [facility] STAND[facility] N FULL Care Teams Phlebotomy Services Technician Relationship Specialty Start Date End Date Ana Laura Bo MD [address] [place] [phone] PCP - General Family Medicine 06/19/18
--- OUTSIDE RECORDS SUMMARY | 2025-07-31 11:05 | XMS_ITS | Encounter Summary ---
Author Organization [employer] Address [address] [place] [address] [address] [place] [address] Care Team Providers Care Dumpster Driver Name Role Phone Ana Laura Bo MD Primary Care Provide r Reason for Visit * Reason Onset Date Comments Medication Question 06/16/2024 Encounter Details Date Type Department Care Team ([facility] st Contact Info) Description 06/16/2024 Telephone [facility] [address] [place], [place] [phone] Ana Laura Bo MD [address] [place], [place] [phone] Medication Question Social History Tobacco Use Types [...] advised by pharmacy to request medication but production underwriter does not see script on med list. If any questions you can contact pt at [phone]. (German Speaker) documented in this encounter Plan of Treatment Not on file documented as of this encounter Visit Diagnoses Not on filedocumented in this encounter Additional Health Concerns Assessment Noted Time PHQ-9 Depression Total Score: 0 03/23/20 23 11:05 AM EDT documented as of this encounter Care Teams Dumpster Driver Relationship Specialty Start Date End Date Ana Laura Bo MD [address] [place] [phone] PCP - General Family Medicine 06/19/18 documented as of this encounter
--- OUTSIDE RECORDS SUMMARY | 2025-07-31 11:05 | XMS_ITS | Encounter Summary ---
Author Organization [employer] Address [address] [place] [address] [address] [place] [address] Care Team Providers Care Seal Delivery Vehicle Team Technician Name Role Phone Ana Laura Bo MD Primary Care Provide r Encounter Details Date Type Department Care Team ([facility] st Contact Info) Description 01/06/2025 Orders Only [facility] [address] [place] [address] ProviderNara MD Social History Tobacco Use Types Packs/Day Years Used Date Smoking Tobacco: Former Cigarettes Smokeless Tobacco: Never Depression Answer Date Recorded Patient Health Questionnaire-9 Score 0 03/23/2023 Housing Stability Answer Date Recorded What is your housing situation today? I have lenora sing 12/23/[address] you li [...] Recorded Patient Health Questionnaire-2 Score 0 03/23/2023 Internet Access Answer Date Recorded Internet Access [...] Procedure Name Priority Date/Time Associated Diagnosis Comments HM COLONOSCOPY Routine 12/29/2022 10:01 AM EDT documented in this encounter Results * Hm Colonoscopy (12/29/2022 10:01 AM EDT) us Historical Provider HEALTH MAINTENANCE Final Result documented in this encounter Visit Diagnoses Not on filedocumented in this encounter Additional Health Concerns Assessment Noted Time PHQ-9 Depression Total Score: 0 03/23/20 23 11:05 AM EDT documented as of this encounter Care Teams Seal Delivery Vehicle Team Technician Relationship Specialty Start Date End Date Ana Laura Bo MD [address] [place] [phone] PCP - General Family Medicine 06/19/18 documented as of this encounter
== END 2025-07-31 09:49 | disposition home or self-care (01) ==
LOC: HO.MAMMO 09:48
PROVIDERS: PCP Internal Medicine; Visit Provider Internal Medicine
DX: Z12.31 Encounter for screening mammogram for malignant neoplasm of breast (principal)
CPT/HCPCS: 77063; 77067

== ENCOUNTER → 2025-07-31 10:00 | Outpatient (BNV) | payer OTHER, MEDICAID, SELFPAY | PROVIDERS: PCP Internal Medicine; Visit Provider Internal Medicine | DX: Z12.31 Encounter for screening mammogram for malignant neoplasm of breast (principal) | CPT/HCPCS: 77063; 77067 ==